=== PATIENT | male | born 1955 | race Caucasian/White ===

== ENCOUNTER 2016-11-15 22:33 | Inpatient (IN) | payer OTHER ==
[~2016-11-15] VITALS: Ht 172.7 cm; Wt 104.9 kg
[2016-11-15] MEDS ORDERED: methylPREDNISolone SOD SUCC PF 125 MG/2 ML VIAL. IV ONE (22:45)
[2016-11-15] MEDS ORDERED: IPRATRPIUM/ALBUTEROL 0.5/2.5MG 3 ML NEBU. NEB ONE ×2 (22:45→23:45)
[2016-11-15 23:48] LABS: BASO % 0 % (0-3); EOS % 0 % (0-3); HEMATOCRIT 46.9 % (39.0-53.0); HEMOGLOBIN 15.7 g/dL (13.0-17.5); LYMPH # 0.4 x10^3/uL (1.0-4.8); LYMPH % 3 % (24-48); MEAN CORPUSCULAR HEMOGLOBIN 29 pg (25-35); MEAN CORPUSCULAR HGB CONC 34 g/dL (31-37); MEAN CORPUSCULAR VOLUME 86 fL (79-100); MONO % 4 % (0-9); NEUT % 93 % (31-73); PLATELET COUNT 119 x10^3/uL (140-400); RED BLOOD COUNT 5.45 x10^6/uL (4.30-5.70); RED CELL DISTRIBUTION WIDTH 12.9 % (11.5-14.5); WHITE BLOOD COUNT 15.7 x10^3/uL (4.0-11.0)
[2016-11-16] VITALS (7 sets, daily range): BP systolic 112–138; BP diastolic 64–82
[2016-11-16 00:04] LABS: CALCIUM 9.2 mg/dL (8.5-10.1); CREATININE 1.1 mg/dL (0.7-1.3); GFR 67.6; POTASSIUM 4.1 mmol/L (3.5-5.1)
--- NOTE | 2016-11-16 00:40 | PHYS DOC ---
Past Medical History Past Medical History: Asthma, COPD Past Surgical History: Other Additional Past Surgical Histo: cabg Alcohol Use: None Drug Use: None Adult General Chief Complaint Chief Complaint: SHORTNESS OF BREATH HPI HPI This is a 61-year-old male who is coming in with difficulty breathing for the last several days and cough. Patient states he has history of COPD and has had open heart surgery in the past. Patient does still smoke a few cigarettes daily. He denies any chest pain with the symptoms. He denies any fever or chills. EMS was notified about the shortness of breath and upon arrival he was satting in the upper 90s on room air in no apparent distress. Several DuoNeb treatments were administered. Upon arrival, the patient still states he feels symptomatically short of breath made worse with exertion. Review of Systems Review of Systems Constitutional: Denies fever or chills [] Eyes: Denies change in visual acuity, redness, or eye pain [] HENT: Denies nasal congestion or sore throat [] Respiratory: Has cough, has shortness of breath [] Cardiovascular: No additional information not addressed in HPI [] GI: Denies abdominal pain, nausea, vomiting, bloody stools or diarrhea [] : Denies dysuria or hematuria [] Musculoskeletal: Denies back pain or joint pain [] Integument: Denies rash or skin lesions [] Neurologic: Denies headache, focal weakness or sensory changes [] Endocrine: Denies polyuria or polydipsia [] Current Medications Current Medications Current Medications Medications (Trade) Dose Ordered Sig/Chris Start Time Stop Time Status Last Admin Dose Admin Acetaminophen (Tylenol) 650 mg PRN Q4HRS PRN 11/16/16 00:45 11/17/16 00:44 UNV Albuterol/ Ipratropium (Duoneb) 3 ml RTQID 11/16/16 08:00 11/17/16 07:59 UNV Methylprednisolone Sodium Succinate (Solu-Medrol 125mg Vial) 125 mg 1X ONCE 11/15/16 22:45 11/15/16 23:13 DC 11/15/16 23:39 125 MG Ondansetron HCl (Zofran) 4 mg PRN Q8HRS PRN 11/16/16 00:45 11/17/16 00:44 UNV Allergies Allergies Allergies Coded Allergies Type Severity Reaction Last Updated Verified doxycycline Allergy Unknown 11/15/16 Yes Physical Exam Physical Exam Constitutional: Well developed, well nourished, no acute distress, non-toxic appearance. [] HENT: Normocephalic, atraumatic, bilateral external ears normal, oropharynx moist, no oral exudates, nose normal. [] Eyes: PERRLA, EOMI, conjunctiva normal, no discharge. [] Neck: Normal range of motion, no tenderness, supple, no stridor. [] Cardiovascular:Heart rate regular rhythm, no murmur [] Lungs & Thorax: Mild wheezing bilaterally with no acute respiratory distress [] Abdomen: Bowel sounds normal, soft, no tenderness, no masses, no pulsatile masses. [] Skin: Warm, dry, no erythema, no rash. [] Back: No tenderness, no CVA tenderness. [] Extremities: No tenderness, no cyanosis, no clubbing, ROM intact, no edema. [] Neurologic: Alert and oriented X 3, normal motor function, normal sensory function, no focal deficits noted. [] Psychologic: Affect normal, judgement normal, mood normal. [] Current Patient Data Vital Signs Vital Signs Date Time Temp Pulse Resp B/P Pulse Ox O2 Delivery O2 Flow Rate FiO2 11/16/16 00:00 114 18 126/70 95 Nasal Cannula 2 11/15/16 22:48 98.4 98.4 Lab Values Laboratory Tests Test 11/15/16 23:35 White Blood Count 15.7x10^3/uL (4.0-11.0) H Red Blood Count 5.45x10^6/uL (4.30-5.70) Hemoglobin 15.7g/dL (13.0-17.5) Hematocrit 46.9% (39.0-53.0) Mean Corpuscular Volume 86fL (79-100) Mean Corpuscular Hemoglobin 29pg (25-35) Mean Corpuscular Hemoglobin Concent 34g/dL (31-37) Red Cell Distribution Width 12.9% (11.5-14.5) Platelet Count 119x10^3/uL (140-400) L Neutrophils (%) (Auto) 93% (31-73) H Lymphocytes (%) (Auto) 3% (24-48) L Monocytes (%) (Auto) 4% (0-9) Eosinophils (%) (Auto) 0% (0-3) Basophils (%) (Auto) 0% (0-3) Neutrophils # (Auto) 14.6x10^3uL (1.8-7.7) H Lymphocytes # (Auto) 0.4x10^3/uL (1.0-4.8) L Monocytes # (Auto) 0.6x10^3/uL (0.0-1.1) Eosinophils # (Auto) 0.0x10^3/uL (0.0-0.7) Basophils # (Auto) 0.0x10^3/uL (0.0-0.2) Platelet Estimate Pending Sodium Level 137mmol/L (136-145) Potassium Level 4.1mmol/L (3.5-5.1) Chloride Level 99mmol/L (98-107) Carbon Dioxide Level 25mmol/L (21-32) Anion Gap 13 (6-14) Blood Urea Nitrogen 16mg/dL (8-26) Creatinine 1.1mg/dL (0.7-1.3) Estimated GFR (Cockcroft-Gault) 67.6 Glucose Level 175mg/dL (70-99) H Calcium Level 9.2mg/dL (8.5-10.1) Troponin I Quantitative < 0.017ng/mL (0.000-0.055) Laboratory Tests 11/15/16 23:35 Laboratory Tests 11/15/16 23:35 EKG EKG EKG as interpreted by me shows a sinus tachycardia with a rate of 109 bpm. There are no acute ST findings. Radiology/Procedures Radiology/Procedures Portable 1 view of the chest as interpreted by wy did not reveal an acute cardiopulmonary process. Course & Med Decision Making Course & Med Decision Making Pertinent Labs and Imaging studies reviewed. (See chart for details) 61-year-old male has had several breathing treatments and a dose of IV site and Medrol. He was ambulated around the department stopped and symptomatically short of breath and so I will be admitting him for COPD exacerbation. His EKG and chest film were unrevealing for any acute abnormalities. His blood work including a set of cardiac enzymes are also negative. I discussed the case with the hospitalist, Dr. Hernandez, who agreed to admit the patient for further evaluation and treatment. Dragon Disclaimer Dragon Disclaimer This electronic medical record was generated, in whole or in part, using a voice recognition dictation system. Departure Departure Impression: Primary Impression: COPD exacerbation Disposition: ADMITTED INPATIENT Admitting Physician: Jennyfer Hernandez Condition: STABLE Referrals: KACIE COLE (PCP) SOFI SOLORZANO DO Nov 16, 2016 00:40
[2016-11-16] MEDS ORDERED: ACETAMINOPHEN 325 MG TABLET. PO PRN (00:45)
[2016-11-16] MEDS ORDERED: ONDANSETRON PF 4 MG/2 ML VIAL. IV PRN (00:45)
--- NOTE | 2016-11-16 00:51 | ACF ---
Admit Criteria Forms Admit Criteria Forms Admit Criteria Forms COPD Clinical Indications for Admission to Inpatient Care (Place 'X' for any and all applicable criteria): Admission is indicated for ANY ONE of the following (1)(2)(3): [X]I. Acute exacerbation by high-risk comorbidity (e.g., pneumonia, dysrhythmia, heart failure, pleural effusion, pneumothorax) or severe underlying COPD (e.g., steroid dependent) [ ]II. Inpatient admission required rather than observation care (see Chronic Obstructive Pulmonary Disease: Observation Care) because of ANY ONE of the following: [ ]a) New or pre-existing signs or symptoms of COPD (eg, dyspnea or Tachypnea at rest or with minimal activity) that persist despite outpatient and observation care treatment [ ]b) New-onset hypoxemia (room air SaO2 less than 90%, PO2 less than 60 mm Hg (8.0 kPa)) that persists despite outpatient and observation care treatment [ ]c) Worsening of pre-existing hypoxemia (eg, new or increased requirement for supplemental oxygen to maintain oxygenation at baseline level) that persists despite outpatient and observation care treatment, with oxygen treatment needs performable only in acute inpatient setting [ ]d) Hypercarbia (PCO2 greater than 40 mm Hg (5.3 kPa))-induced respiratory acidosis (pH less than 7.35) that persists despite outpatient and observation care treatment [ ]e) Supplemental oxygen or respiratory treatments for over 24 hours that are performable only in acute inpatient setting [ ]f) Chest tube placement with active evacuation (e.g., suction, drainage) (5) [ ]g) Other condition, treatment or monitoring requiring inpatient admission [ ]III. Planned invasive surgical or diagnostic procedures requiring acute- care hospitalization [ ]IV. Acute respiratory failure (e.g., uncompensated hypercarbia, severe hypoxemia) [ ]V. Severe comorbid condition (e.g., severe steroid myopathy, acute vertebral fracture) that has acutely worsened pulmonary function [ ]. Confusion state, lethargy, obtundation, stupor or coma Extended stay beyond goal length of stay may be needed for (31)(32): [ ]a ) Respiratory Failure. [ ]b) Severe or persisting hypoxemia or hypercarbia [ ]c) Severe or persistent dyspnea [ ]d) Comorbidities (e.g. chronic heart failure, atrial fibrillation with rapid response, pneumonia) [ ]e) Malnutrition The original [employer] content created by [facility] has been revised. The portions of the content which have been revised are identified through the use of italic text or in bold, and [facility] has neither reviewed nor approved the modified material. All other unmodified content is copyright [facility]. Please see references footnoted in the original [facility] edition 2016 RAJI VARELA Nov 16, 2016 00:50
[2016-11-16 02:23] LABS: OBC FLU VALID
[2016-11-16] MEDS ORDERED: INFLUENZA VAX SCREEN BY RX. MC ONE (02:30)
[2016-11-16] MEDS ORDERED: PNEUMOCOCCAL VAX SCREEN BY RX. MC ONE (02:30)
[2016-11-16 04:26] LABS: PLT ESTIMATE DECREASED (ADEQUATE)
--- NOTE | 2016-11-16 07:43 | RAD ---
Exam: AP portable chest. History: Shortness of breath. Comparison: None. Findings: The heart and mediastinal structures are within normal limits for size. Lungs are without infiltrate. No pneumothorax or pleural effusion is appreciated. Median sternotomy wires are seen. Impression: 1. No acute cardiopulmonary process.
[2016-11-16] MEDS ORDERED: IPRATRPIUM/ALBUTEROL 0.5/2.5MG 3 ML NEBU. NEB SCH (08:00)
[2016-11-16] MEDS ORDERED: NICOTINE 7MG PATCH. TD PRN (08:45)
[2016-11-16] MEDS ORDERED: GUAIFENESIN DM 200MG/20MG 10 ML SYRUP. PO PRN (08:45)
[2016-11-16] MEDS ORDERED: NICOTINE POLACRILEX 2MG GUM PACKAGE of 12. BC PRN (08:45)
--- NOTE | 2016-11-16 08:45 | PDOC1 ---
History and Physical Date of Admission Date of Admission DATE: 11/16/16 TIME: 08:42 Identification/Chief Complaint Chief Complaint short of breath and cough Source Source: Chart review, Patient History of Present Illness History of Present Illness Mr. Silva is a 61-year-old male who is coming in with difficulty breathing for the last several days and cough. Patient states he has history of COPD and has had open heart surgery in the past. Patient does still smoke a few cigarettes daily. he cannot breathe deeply without coughing uncontrollably. he feels a little better after breathing tx. He has almost quit smoking, Gets most care at the [facility], he is not working, feels disabled, Past Medical History Cardiovascular: CAD, HTN Pulmonary: COPD CENTRAL NERVOUS SYSTEM: Other GI: No pertinent hx Heme/Onc: No pertinent hx Hepatobiliary: No pertinent hx Psych: No pertinent hx Musculoskeletal: low back pain Infectious disease: No pertinent hx ENT: No pertinent hx Renal/: No pertinent hx Dermatology: No pertinent hx Past Surgical History Past Surgical History: Other Family History Family History: No Significant Social History Smoke: <1 pack per day ALCOHOL: rare Current Problem List Problem List Problems Medical Problems: (1) COPD exacerbation Status: Acute Problems: Current Medications Current Medications Current Medications Albuterol/ Ipratropium (Duoneb) 3 ml 1X ONCE NEB Last administered on 23:06; Start 11/15/16 at 22:45; Stop 11/15/16 at 23:13; Status DC Methylprednisolone Sodium Succinate (Solu-Medrol 125mg Vial) 125 mg 1X ONCE IV Last administered on 11/15/16 23:39; Start 11/15/16 at 22:45; Stop 11/15/16 at 23:13; Status DC Albuterol/ Ipratropium (Duoneb) 3 ml 1X ONCE NEB Last administered on 23:46; Start 11/15/16 at 23:45; Stop 11/15/16 at 23:56; Status DC Ondansetron HCl (Zofran) 4 mg PRN Q8HRS PRN IV NAUSEA/VOMITING; Start 11/16/16 at 00:45; Stop 11/17/16 at 00:44 Acetaminophen (Tylenol) 650 mg PRN Q4HRS PRN PO FEVER; Start 11/16/16 at 00:45 ; Stop 11/17/16 at 00:44 Albuterol/ Ipratropium (Duoneb) 3 ml RTQID NEB Last administered on 11/16/16t 07:27; Start 11/16/16 at 08:00; Stop 11/17/16 at 07:59 Info (Do NOT chart on this placeholder) 1 each 1X ONCE MC ; Start 11/16/16 at 02:30; Stop 11/16/16 at 02:31; Status UNV Pneumococcal Polyvalent Vaccine (Do NOT chart on this placeholder) 1 each 1X ONCE MC ; Start 11/16/16 at 02:30; Stop 11/16/16 at 02:31; Status UNV Influenza Virus Vaccine Quadrival (Fluarix Quad [id number] Syringe) 0.5 ml ONCE ONCE VAX IM ; Start 11/16/16 at 09:00; Stop 11/16/16 at 09:01 Pneumococcal Polyvalent Vaccine (Pneumovax 23) 0.5 ml ONCE ONCE VAX IM ; Start 11/16/16 at 09:00; Stop 11/16/16 at 09:01 Allergies Allergies: Coded Allergies: doxycycline (Verified Allergy, Intermediate, 11/16/16) ROS General: YES: Fatigue, No: Appetite, Chills, Malaise, Night Sweats, Other PSYCHOLOGICAL ROS: No: Anxiety, Behavioral Disorder, Concentration difficultie , Decreased libido, Depression, Disorientation, Hallucinations, Hostility, Irritablity, Memory difficulties, Mood Swings, Obsessive thoughts, Other, Physical abuse, Sexual abuse, Sleep disturbances, Suicidal ideation Eyes: No Blurry vision, No Decreased vision, No Double vision, No Dry eyes, No Excessive tearing, No Eye Pain, No Itchy Eyes, No Loss of vision, No Other, No Photophobia, No Scotomata, No Uses contacts, No Uses glasses HEENT: YES: Heacaches, Nasal congestion, No: Epistaxis, Hearing change, Nasal discharge, Oral lesions, Other, Sinus pain, Sneezing, Snoring, Sore Throat, Tinnitus, Vertigo, Visual Changes, Vocal changes Respiratory: YES: Cough, Pleuritic Pain, SOB with excertion, Sputum Changes, Tachypnea, Wheezing, No: Hemoptysis, Orthopnea, Other, Shortness of breath, Stridor Cardiovascular: No Chest Pain, No Edema, No Lt Headedness, No Orthopnea, No Other, No Palpitations, No Paroxysmal Noc. Dyspnea Gastrointestinal: No Abdominal Pain, No Constipation, No Diarrhea, No Hematochezia, No Melena, No Nausea, No Other, No Vomiting Genitourinary: No , No , No , No , No , No , No , No Discharge, No Dysuria, No Flank Pain, No Frequency, No Hematuria, No Incontinence, No Other, No Pain, No Retention, No Urgency Musculoskeletal: No Gait Disturbance, No Joint Pain, No Joint Stiffness, No Joint Swelling, No Muscle Pain, No Muscular Weakness, No Other, No Pain In:, No Swelling In: Neurological: No Behavorial Changes, No Bowel/Bladder ControlChng, No Confusion , No Dizziness, No Gait Disturbance, No Headaches, No Impaired Coord/balance, No Memory Loss, No Numbness/Tingling, No Other, No Seizures, No Speech Problems , No Tremors, No Visual Changes, No Weakness Skin: Yes Dry Skin, No Acne, No Eczema, No Hair Changes, No Lumps, No Mole Changes, No Mottling, No Nail Changes, No Other, No Pruritus, No Rash, No Skin Lesion Changes Physical Exam General: Alert, Oriented X3, Cooperative, mild distress HEENT: Atraumatic, PERRLA Lungs: Other (low volume, rales, unable to breathe deeply, ) Heart: no murmurs Abdomen: Normal bowel sounds, Soft Extremities: No clubbing, No edema, Normal pulses Skin: No rashes Neuro: Normal speech, Normal tone, Cranial nerves 3-12 NL Psych/Mental Status: Mood NL Vitals Vitals Vital Signs Date Time Temp Pulse Resp B/P Pulse Ox O2 Delivery O2 Flow Rate FiO2 11/16/16 07:31 94 Room Air 11/16/16 02:16 97.5 106 20 128/82 97.5 11/16/16 00:00 2 Labs Labs Laboratory Tests Test 11/15/16 23:27 11/15/16 23:35 Influenza Type A Antigen Negative (NEGATIVE) Influenza Type B Antigen Negative (NEGATIVE) White Blood Count 15.7x10^3/uL (4.0-11.0) Red Blood Count 5.45x10^6/uL (4.30-5.70) Hemoglobin 15.7g/dL (13.0-17.5) Hematocrit 46.9% (39.0-53.0) Mean Corpuscular Volume 86fL (79-100) Mean Corpuscular Hemoglobin 29pg (25-35) Mean Corpuscular Hemoglobin Concent 34g/dL (31-37) Red Cell Distribution Width 12.9% (11.5-14.5) Platelet Count 119x10^3/uL (140-400) Neutrophils (%) (Auto) 93% (31-73) Lymphocytes (%) (Auto) 3% (24-48) Monocytes (%) (Auto) 4% (0-9) Eosinophils (%) (Auto) 0% (0-3) Basophils (%) (Auto) 0% (0-3) Neutrophils # (Auto) 14.6x10^3uL (1.8-7.7) Lymphocytes # (Auto) 0.4x10^3/uL (1.0-4.8) Monocytes # (Auto) 0.6x10^3/uL (0.0-1.1) Eosinophils # (Auto) 0.0x10^3/uL (0.0-0.7) Basophils # (Auto) 0.0x10^3/uL (0.0-0.2) Segmented Neutrophils % 86% (35-66) Band Neutrophils % 8% (0-9) Lymphocytes % 1% (24-48) Monocytes % 5% (0-10) Platelet Estimate Decreased (ADEQUATE) Large Platelets Occ Sodium Level 137mmol/L (136-145) Potassium Level 4.1mmol/L (3.5-5.1) Chloride Level 99mmol/L (98-107) Carbon Dioxide Level 25mmol/L (21-32) Anion Gap 13 (6-14) Blood Urea Nitrogen 16mg/dL (8-26) Creatinine 1.1mg/dL (0.7-1.3) Estimated GFR (Cockcroft-Gault) 67.6 Glucose Level 175mg/dL (70-99) Calcium Level 9.2mg/dL (8.5-10.1) Troponin I Quantitative < 0.017ng/mL (0.000-0.055) Laboratory Tests Test 11/15/16 23:27 11/15/16 23:35 Influenza Type A Antigen Negative (NEGATIVE) Influenza Type B Antigen Negative (NEGATIVE) White Blood Count 15.7x10^3/uL (4.0-11.0) Red Blood Count 5.45x10^6/uL (4.30-5.70) Hemoglobin 15.7g/dL (13.0-17.5) Hematocrit 46.9% (39.0-53.0) Mean Corpuscular Volume 86fL (79-100) Mean Corpuscular Hemoglobin 29pg (25-35) Mean Corpuscular Hemoglobin Concent 34g/dL (31-37) Red Cell Distribution Width 12.9% (11.5-14.5) Platelet Count 119x10^3/uL (140-400) Neutrophils (%) (Auto) 93% (31-73) Lymphocytes (%) (Auto) 3% (24-48) Monocytes (%) (Auto) 4% (0-9) Eosinophils (%) (Auto) 0% (0-3) Basophils (%) (Auto) 0% (0-3) Neutrophils # (Auto) 14.6x10^3uL (1.8-7.7) Lymphocytes # (Auto) 0.4x10^3/uL (1.0-4.8) Monocytes # (Auto) 0.6x10^3/uL (0.0-1.1) Eosinophils # (Auto) 0.0x10^3/uL (0.0-0.7) Basophils # (Auto) 0.0x10^3/uL (0.0-0.2) Segmented Neutrophils % 86% (35-66) Band Neutrophils % 8% (0-9) Lymphocytes % 1% (24-48) Monocytes % 5% (0-10) Platelet Estimate Decreased (ADEQUATE) Large Platelets Occ Sodium Level 137mmol/L (136-145) Potassium Level 4.1mmol/L (3.5-5.1) Chloride Level 99mmol/L (98-107) Carbon Dioxide Level 25mmol/L (21-32) Anion Gap 13 (6-14) Blood Urea Nitrogen 16mg/dL (8-26) Creatinine 1.1mg/dL (0.7-1.3) Estimated GFR (Cockcroft-Gault) 67.6 Glucose Level 175mg/dL (70-99) Calcium Level 9.2mg/dL (8.5-10.1) Troponin I Quantitative < 0.017ng/mL (0.000-0.055) VTE Prophylaxis Ordered VTE Prophylaxis Devices: Yes VTE Pharmacological Prophylaxi: No Assessment/Plan Assessment/Plan COPD w. acute bronchitis, SIRS, respiratory distress without hypoxia + SIRS, not sepsis, no organ dysfunction other than PULM, will consult Hx CAD, s/p CABG and stent, cont plavix and statin GERD, PPI admit SHAYNE TOVAR MD Nov 16, 2016 08:45
[2016-11-16] MEDS ORDERED: DOXYCYCLINE HYCLATE 100 MG TABLET PO SCH (09:00)
[2016-11-16] MEDS ORDERED: LEVOFLOXACIN 750 MG TABLET. PO ONE (09:00)
[2016-11-16] MEDS ORDERED: PNEUMOC CONJ VACC 23-VALENT 0.5 ML VIAL. VAX IM ONE (09:00)
[2016-11-16] MEDS ORDERED: CLOPIDOGREL BISULFATE 75 MG TABLET PO ONE (09:00)
[2016-11-16] MEDS ORDERED: FLU VACC QUAD 2016-17 (36MOS+)/PF 0.5 ML SYRINGE. VAX IM ONE (09:00)
[2016-11-16] MEDS ORDERED: CODE1CAP24 PO (09:58)
[2016-11-16] MEDS ORDERED: NAPR500T8 PO (09:58)
[2016-11-16] MEDS ORDERED: CLOP75TA PO (09:58)
[2016-11-16] MEDS ORDERED: PANT40TA5 PO (09:58)
[2016-11-16] MEDS ORDERED: SIMV80TA3 PO (09:58)
[2016-11-16] MEDS ORDERED: METO100T11 PO (09:58)
[2016-11-16] MEDS ORDERED: PANTOPRAZOLE 40 MG TABLET. PO ONE (10:00)
[2016-11-16] MEDS ORDERED: ASPI-482 PO (10:02)
[2016-11-16] MEDS ORDERED: METO50TA2 PO (10:02)
[2016-11-16] MEDS ORDERED: METH500T7 PO (10:02)
--- NOTE | 2016-11-16 10:42 | PDOC ---
Provider Note Provider Note [id number] dyspnea ae of copd acute bronchitis abx, steroid, neb MADONNA ATKINSON MD Nov 16, 2016 10:42
[2016-11-16] MEDS: CARVEDILOL 3.125 MG TABLET PO SCH ×2 (11:00→16:12)
[2016-11-16] MEDS: PREDNISONE 20 MG TABLET PO SCH (11:00)
[2016-11-16] MEDS: LIDOCAINE (700MG/PATCH) PATCH. TD SCH (11:02)
--- NOTE | 2016-11-16 11:35 | EKG ---
[facility] [address] [place] [address] Test Date: 2016-11-15 Test Time: 22:46:59 Pat Name: CARIE STERLING Department: Room: [facility] Gender: M College Administrator: : [id number] Requested By: SOFI SOLORZANO Order Number: [id number] Reading MD: Jeet Flaherty Measurements Intervals [place] Rate: 109 P: 60 KS: 142 QRS: 43 QRSD: 80 T: 93 QT: 328 QTc: 443 Interpretive Statements SINUS TACHYCARDIA Electronically Signed On 11-18-2016 9:44:07 EYELET ROW MARKER by Jeet Flaherty
[2016-11-16] MEDS: IPRATRPIUM/ALBUTEROL 0.5/2.5MG 3 ML NEBU. NEB SCH ×3 (11:46→20:12)
[2016-11-16] MEDS: BUDESONIDE 0.5 MG/2 ML NEBU NEB SCH ×2 (11:47→20:12)
--- NOTE | 2016-11-16 14:46 | CONS ---
DATE OF CONSULTATION: 11/16/2016 PULMONARY CONSULTATION I was asked to see this 61-year-old gentleman for shortness of breath, cough, wheezing, acute exacerbation of COPD. HISTORY OF PRESENT ILLNESS: He does have history of [id number] smoking, continues to smoke a few cigarettes here and there. He started to have increased cough, shortness of breath, wheezing, sputum production, and nasal congestion, a few days ago. He has chest wall pain secondary to coughing. He denies gastroesophageal reflux symptoms. He has excessive daytime sleepiness and tiredness, does not know if he snores. He has multiple awakening at night. PAST MEDICAL HISTORY: COPD, asthma, coronary artery disease status post CABG. ALLERGIES: DOXYCYCLINE. MEDICATIONS: Currently, he is on albuterol, Atrovent nebulizer, Plavix, aspirin, Protonix, Levaquin, Lipitor, Coreg, Pulmicort, prednisone 40 mg daily, and nicotine patch. SOCIAL HISTORY: History of [id number] smoking. Continues to smoke few cigarettes. FAMILY HISTORY: Positive for COPD. REVIEW OF SYSTEMS: As mentioned as above. He has gained weight. Other systems are otherwise negative. PHYSICAL EXAMINATION: GENERAL: This is an overweight gentleman. VITAL SIGNS: His O2 saturation is 94%, respiratory rate 20, heart rate 105, blood pressure 135/79, and temperature 97.7. HEENT: Normocephalic, atraumatic. Pupils equal, round, reactive to light. Throat is clear. There is shallow oropharynx dependent palate. Nose: There is inflamed mucosa. NECK: There is no JVD, lymphadenopathy or thyromegaly. CARDIOVASCULAR: Regular rate and rhythm. PMI is nondisplaced. CHEST: Inspection is normal. LUNGS: Bilateral end expiratory wheezing, bibasilar crackles, dullness at the bases. ABDOMEN: Soft and obese. Bowel sounds are good. There is no mass. EXTREMITIES: There is no clubbing or cyanosis. LYMPHATICS: There is no lymphadenopathy. SKIN: Chronic changes. NEUROLOGIC: Alert and oriented x 3. LABORATORY DATA: I reviewed the following lab data Influenza A and B negative. Sodium 137, potassium 4.1, chloride 99, CO2 of 25, glucose 175. BUN 16, creatinine 1.1. Troponin less than 0.01. WBC 15.7, hemoglobin 15.7, platelets 119. IMPRESSION: 1. Dyspnea, multifactorial in etiology. 2. Acute exacerbation of chronic obstructive pulmonary disease. 3. Acute bronchitis. 4. Coronary artery disease, status post coronary artery bypass graft. 5. Tobacco habituation. 6. Obesity and excessive daytime sleepiness, probable obstructive sleep apnea-hypopnea syndrome. PLAN AND RECOMMENDATIONS: 1. Titrate FiO2 to keep O2 saturation 92%. 2. Bronchodilator. 3. Inhaled corticosteroid. 4. Prednisone 40 mg daily. If he does not improve, we may have to change prednisone to Solu-Medrol 40 mg IV every 8. 5. Sputum culture. 6. Lovenox for DVT prophylaxis. 7. Lose weight and exercise. 8. I had a long discussion with him regarding smoking cessation. I have advised him to stop smoking forever. 9. I agree with nicotine patch. 10. I have discussed obstructive sleep apnea-hypopnea syndrome, the importance of diagnosis and treatment if untreated increased cardiovascular and [employer] morbidity or mortality. I do recommend a split night sleep study as an outpatient. 11. The findings and recommendations were discussed with the patient. He understood and agreed to proceed with the plan. I have answered all of his questions. Thank you very much for allowing me to participate in care of this very nice gentleman. MADONNA ATKINSON M.D. : NOLVIA/jonatan JOB#: [id number] / [id number]
[2016-11-16] MEDS: GUAIFENESIN DM 200MG/20MG 10 ML SYRUP. PO PRN (17:14)
[2016-11-16] MEDS: OXYCODONE IR 5 MG TABLET. PO PRN ×2 (17:15→20:46)
[2016-11-16] MEDS: ATORVASTATIN CALCIUM 20 MG TABLET PO SCH (20:42)
[2016-11-16] MEDS: MONTELUKAST SODIUM 10 MG TABLET. PO SCH (20:42)
[2016-11-17 03:14] VITALS: BP 124/67
[2016-11-17] MEDS: GUAIFENESIN DM 200MG/20MG 10 ML SYRUP. PO PRN ×2 (03:27→14:33)
[2016-11-17] MEDS: OXYCODONE IR 5 MG TABLET. PO PRN ×2 (03:28→18:54)
[2016-11-17] MEDS: PANTOPRAZOLE 40 MG TABLET. PO SCH (05:55)
[2016-11-17] MEDS: LEVOFLOXACIN 750 MG TABLET. PO SCH (05:55)
[2016-11-17 07:00] VITALS: BP 129/76
[2016-11-17 07:04] LABS: BASO % 0 % (0-3); EOS % 0 % (0-3); HEMATOCRIT 42.6 % (39.0-53.0); LYMPH # 1.1 x10^3/uL (1.0-4.8); LYMPH % 8 % (24-48); MEAN CORPUSCULAR HEMOGLOBIN 29 pg (25-35); MEAN CORPUSCULAR HGB CONC 33 g/dL (31-37); MEAN CORPUSCULAR VOLUME 87 fL (79-100); MONO % 8 % (0-9); NEUT % 85 % (31-73); PLATELET COUNT 125 x10^3/uL (140-400); RED BLOOD COUNT 4.91 x10^6/uL (4.30-5.70); RED CELL DISTRIBUTION WIDTH 13.3 % (11.5-14.5)
[2016-11-17 07:20] LABS: CALCIUM 9.1 mg/dL (8.5-10.1); CREATININE 1.2 mg/dL (0.7-1.3); GFR 61.1; POTASSIUM 4.3 mmol/L (3.5-5.1)
[2016-11-17] MEDS: IPRATRPIUM/ALBUTEROL 0.5/2.5MG 3 ML NEBU. NEB SCH ×4 (08:15→19:36)
[2016-11-17] MEDS: BUDESONIDE 0.5 MG/2 ML NEBU NEB SCH ×2 (08:16→19:36)
[2016-11-17] MEDS: ASPIRIN 81 MG TAB.CHEW PO SCH (08:44)
[2016-11-17] MEDS: CLOPIDOGREL BISULFATE 75 MG TABLET PO SCH (08:44)
[2016-11-17] MEDS: PREDNISONE 20 MG TABLET PO SCH (08:44)
[2016-11-17] MEDS: CARVEDILOL 3.125 MG TABLET PO SCH ×2 (08:45→17:24)
[2016-11-17] MEDS: LIDOCAINE (700MG/PATCH) PATCH. TD SCH (08:48)
[2016-11-17 11:00] VITALS: BP 126/77
--- NOTE | 2016-11-17 12:06 | PDOC ---
PULMONARY PROGRESS NOTES Subjective Had some soa last night feels better today Vitals Vital Signs Date Time Temp Pulse Resp B/P Pulse Ox O2 Delivery O2 Flow Rate FiO2 11/17/16 11:00 97.7 101 20 126/77 94 Room Air 97.7 11/16/16 18:15 2.0 General: Alert Lungs: Clear Cardiovascular: S1 Abdomen: Soft Neuro Exam: Alert Extremities: No Edema Skin: Warm Labs Laboratory Tests Test 11/15/16 23:27 11/15/16 23:35 11/17/16 06:40 Influenza Type A Antigen Negative (NEGATIVE) Influenza Type B Antigen Negative (NEGATIVE) White Blood Count 15.7x10^3/uL (4.0-11.0) 15.0x10^3/uL (4.0-11.0) Red Blood Count 5.45x10^6/uL (4.30-5.70) 4.91x10^6/uL (4.30-5.70) Hemoglobin 15.7g/dL (13.0-17.5) 14.0g/dL (13.0-17.5) Hematocrit 46.9% (39.0-53.0) 42.6% (39.0-53.0) Mean Corpuscular Volume 86fL (79-100) 87fL (79-100) Mean Corpuscular Hemoglobin 29pg (25-35) 29pg (25-35) Mean Corpuscular Hemoglobin Concent 34g/dL (31-37) 33g/dL (31-37) Red Cell Distribution Width 12.9% (11.5-14.5) 13.3% (11.5-14.5) Platelet Count 119x10^3/uL (140-400) 125x10^3/uL (140-400) Neutrophils (%) (Auto) 93% (31-73) 85% (31-73) Lymphocytes (%) (Auto) 3% (24-48) 8% (24-48) Monocytes (%) (Auto) 4% (0-9) 8% (0-9) Eosinophils (%) (Auto) 0% (0-3) 0% (0-3) Basophils (%) (Auto) 0% (0-3) 0% (0-3) Neutrophils # (Auto) 14.6x10^3uL (1.8-7.7) 12.7x10^3uL (1.8-7.7) Lymphocytes # (Auto) 0.4x10^3/uL (1.0-4.8) 1.1x10^3/uL (1.0-4.8) Monocytes # (Auto) 0.6x10^3/uL (0.0-1.1) 1.1x10^3/uL (0.0-1.1) Eosinophils # (Auto) 0.0x10^3/uL (0.0-0.7) 0.0x10^3/uL (0.0-0.7) Basophils # (Auto) 0.0x10^3/uL (0.0-0.2) 0.0x10^3/uL (0.0-0.2) Segmented Neutrophils % 86% (35-66) Band Neutrophils % 8% (0-9) Lymphocytes % 1% (24-48) Monocytes % 5% (0-10) Platelet Estimate Decreased (ADEQUATE) Large Platelets Occ Sodium Level 137mmol/L (136-145) 136mmol/L (136-145) Potassium Level 4.1mmol/L (3.5-5.1) 4.3mmol/L (3.5-5.1) Chloride Level 99mmol/L (98-107) 101mmol/L (98-107) Carbon Dioxide Level 25mmol/L (21-32) 26mmol/L (21-32) Anion Gap 13 (6-14) 9 (6-14) Blood Urea Nitrogen 16mg/dL (8-26) 25mg/dL (8-26) Creatinine 1.1mg/dL (0.7-1.3) 1.2mg/dL (0.7-1.3) Estimated GFR (Cockcroft-Gault) 67.6 61.1 Glucose Level 175mg/dL (70-99) 254mg/dL (70-99) Calcium Level 9.2mg/dL (8.5-10.1) 9.1mg/dL (8.5-10.1) Troponin I Quantitative < 0.017ng/mL (0.000-0.055) Laboratory Tests Test 11/17/16 06:40 White Blood Count 15.0x10^3/uL (4.0-11.0) Red Blood Count 4.91x10^6/uL (4.30-5.70) Hemoglobin 14.0g/dL (13.0-17.5) Hematocrit 42.6% (39.0-53.0) Mean Corpuscular Volume 87fL (79-100) Mean Corpuscular Hemoglobin 29pg (25-35) Mean Corpuscular Hemoglobin Concent 33g/dL (31-37) Red Cell Distribution Width 13.3% (11.5-14.5) Platelet Count 125x10^3/uL (140-400) Neutrophils (%) (Auto) 85% (31-73) Lymphocytes (%) (Auto) 8% (24-48) Monocytes (%) (Auto) 8% (0-9) Eosinophils (%) (Auto) 0% (0-3) Basophils (%) (Auto) 0% (0-3) Neutrophils # (Auto) 12.7x10^3uL (1.8-7.7) Lymphocytes # (Auto) 1.1x10^3/uL (1.0-4.8) Monocytes # (Auto) 1.1x10^3/uL (0.0-1.1) Eosinophils # (Auto) 0.0x10^3/uL (0.0-0.7) Basophils # (Auto) 0.0x10^3/uL (0.0-0.2) Sodium Level 136mmol/L (136-145) Potassium Level 4.3mmol/L (3.5-5.1) Chloride Level 101mmol/L (98-107) Carbon Dioxide Level 26mmol/L (21-32) Anion Gap 9 (6-14) Blood Urea Nitrogen 25mg/dL (8-26) Creatinine 1.2mg/dL (0.7-1.3) Estimated GFR (Cockcroft-Gault) 61.1 Glucose Level 254mg/dL (70-99) Calcium Level 9.1mg/dL (8.5-10.1) Medications Active Scripts Medications Dose Route/Sig Days Date Category Methocarbamol 500 Mg Tablet 500 Mg PO QID 11/16/16 Reported Metoprolol Tartrate 50 Mg Tablet 1 Tab PO BID 11/16/16 Reported Aspir 81 (Aspirin) 81 Mg Tablet.dr 1 Tab PO DAILY 11/16/16 Reported Naproxen 500 Mg Tablet.dr 500 Mg PO PRN 11/16/16 Reported Pantoprazole Sodium 40 Mg Tablet.dr 1 Tab PO DAILY 11/16/16 Reported Clopidogrel (Clopidogrel Bisulfate) 75 Mg Tablet 1 Tab PO DAILY 11/16/16 Reported Simvastatin 80 Mg Tablet 1 Tab PO DAILY 11/16/16 Reported Impression . 1. Dyspnea, multifactorial in etiology. 2. Acute exacerbation of chronic obstructive pulmonary disease. 3. Acute bronchitis. 4. Coronary artery disease, status post coronary artery bypass graft. 5. Tobacco habituation. 6. Obesity and excessive daytime sleepiness, probable obstructive sleep apnea-hypopnea syndrome. Pt says previous SS ruled out L[facility]ESH at [facility] Plan . 1. Titrate FiO2 to keep O2 saturation 92%. 2. Bronchodilator. 3. Inhaled corticosteroid. 4. steroid taper 5. Sputum culture. 6. Lovenox for DVT prophylaxis. 7. Lose weight and exercise. 8. I had a long discussion with him regarding smoking cessation. I have advised him to stop smoking forever. 9. I agree with nicotine patch. ANTONIO LONG MD Nov 17, 2016 12:06
[2016-11-17 15:00] VITALS: BP 128/83
[2016-11-17] MEDS: ACETAMINOPHEN/CODEINE 300/30MG TABLET PO PRN (15:04)
--- NOTE | 2016-11-17 15:43 | PDOC ---
PROGRESS NOTES Chief Complaint Chief Complaint ASSESSMENT AND PLAN: 1. COPD exacerbation w/ acute bronchitis: cont nebs, suppl O2, prednisone, cough meds 2. SIRS w/ respir dysfxn 3. CAD: hx CABG and stent. no acute issues. cont BB, ASA, plavix and statin 4. GERD: PPI 5. Dispo: home in AM if clinically stable. Vitals Vitals Vital Signs Date Time Temp Pulse Resp B/P Pulse Ox O2 Delivery O2 Flow Rate FiO2 11/17/16 15:04 Room Air 11/17/16 15:00 98.7 94 20 128/83 96 98.7 11/16/16 18:15 2.0 Physical Exam General: Alert, Oriented X3, Cooperative Heart: Regular rate Lungs: Clear, Other (decreased BS bilat) Abdomen: Normal bowel sounds, Soft Extremities: No clubbing, No edema, Normal pulses Skin: No rashes Labs LABS Laboratory Tests Test 11/17/16 06:40 White Blood Count 15.0x10^3/uL (4.0-11.0) Red Blood Count 4.91x10^6/uL (4.30-5.70) Hemoglobin 14.0g/dL (13.0-17.5) Hematocrit 42.6% (39.0-53.0) Mean Corpuscular Volume 87fL (79-100) Mean Corpuscular Hemoglobin 29pg (25-35) Mean Corpuscular Hemoglobin Concent 33g/dL (31-37) Red Cell Distribution Width 13.3% (11.5-14.5) Platelet Count 125x10^3/uL (140-400) Neutrophils (%) (Auto) 85% (31-73) Lymphocytes (%) (Auto) 8% (24-48) Monocytes (%) (Auto) 8% (0-9) Eosinophils (%) (Auto) 0% (0-3) Basophils (%) (Auto) 0% (0-3) Neutrophils # (Auto) 12.7x10^3uL (1.8-7.7) Lymphocytes # (Auto) 1.1x10^3/uL (1.0-4.8) Monocytes # (Auto) 1.1x10^3/uL (0.0-1.1) Eosinophils # (Auto) 0.0x10^3/uL (0.0-0.7) Basophils # (Auto) 0.0x10^3/uL (0.0-0.2) Sodium Level 136mmol/L (136-145) Potassium Level 4.3mmol/L (3.5-5.1) Chloride Level 101mmol/L (98-107) Carbon Dioxide Level 26mmol/L (21-32) Anion Gap 9 (6-14) Blood Urea Nitrogen 25mg/dL (8-26) Creatinine 1.2mg/dL (0.7-1.3) Estimated GFR (Cockcroft-Gault) 61.1 Glucose Level 254mg/dL (70-99) Calcium Level 9.1mg/dL (8.5-10.1) Review of Systems Review of Systems coughing fits with deep breathing. no SOB off O2, but PIERRE Comment Review of Relevant I have reviewed the following items ana (where applicable) has been applied. Labs Laboratory Tests Test 11/15/16 23:27 11/15/16 23:35 11/17/16 06:40 Influenza Type A Antigen Negative (NEGATIVE) Influenza Type B Antigen Negative (NEGATIVE) White Blood Count 15.7x10^3/uL (4.0-11.0) 15.0x10^3/uL (4.0-11.0) Red Blood Count 5.45x10^6/uL (4.30-5.70) 4.91x10^6/uL (4.30-5.70) Hemoglobin 15.7g/dL (13.0-17.5) 14.0g/dL (13.0-17.5) Hematocrit 46.9% (39.0-53.0) 42.6% (39.0-53.0) Mean Corpuscular Volume 86fL (79-100) 87fL (79-100) Mean Corpuscular Hemoglobin 29pg (25-35) 29pg (25-35) Mean Corpuscular Hemoglobin Concent 34g/dL (31-37) 33g/dL (31-37) Red Cell Distribution Width 12.9% (11.5-14.5) 13.3% (11.5-14.5) Platelet Count 119x10^3/uL (140-400) 125x10^3/uL (140-400) Neutrophils (%) (Auto) 93% (31-73) 85% (31-73) Lymphocytes (%) (Auto) 3% (24-48) 8% (24-48) Monocytes (%) (Auto) 4% (0-9) 8% (0-9) Eosinophils (%) (Auto) 0% (0-3) 0% (0-3) Basophils (%) (Auto) 0% (0-3) 0% (0-3) Neutrophils # (Auto) 14.6x10^3uL (1.8-7.7) 12.7x10^3uL (1.8-7.7) Lymphocytes # (Auto) 0.4x10^3/uL (1.0-4.8) 1.1x10^3/uL (1.0-4.8) Monocytes # (Auto) 0.6x10^3/uL (0.0-1.1) 1.1x10^3/uL (0.0-1.1) Eosinophils # (Auto) 0.0x10^3/uL (0.0-0.7) 0.0x10^3/uL (0.0-0.7) Basophils # (Auto) 0.0x10^3/uL (0.0-0.2) 0.0x10^3/uL (0.0-0.2) Segmented Neutrophils % 86% (35-66) Band Neutrophils % 8% (0-9) Lymphocytes % 1% (24-48) Monocytes % 5% (0-10) Platelet Estimate Decreased (ADEQUATE) Large Platelets Occ Sodium Level 137mmol/L (136-145) 136mmol/L (136-145) Potassium Level 4.1mmol/L (3.5-5.1) 4.3mmol/L (3.5-5.1) Chloride Level 99mmol/L (98-107) 101mmol/L (98-107) Carbon Dioxide Level 25mmol/L (21-32) 26mmol/L (21-32) Anion Gap 13 (6-14) 9 (6-14) Blood Urea Nitrogen 16mg/dL (8-26) 25mg/dL (8-26) Creatinine 1.1mg/dL (0.7-1.3) 1.2mg/dL (0.7-1.3) Estimated GFR (Cockcroft-Gault) 67.6 61.1 Glucose Level 175mg/dL (70-99) 254mg/dL (70-99) Calcium Level 9.2mg/dL (8.5-10.1) 9.1mg/dL (8.5-10.1) Troponin I Quantitative < 0.017ng/mL (0.000-0.055) Laboratory Tests Test 11/17/16 06:40 White Blood Count 15.0x10^3/uL (4.0-11.0) Red Blood Count 4.91x10^6/uL (4.30-5.70) Hemoglobin 14.0g/dL (13.0-17.5) Hematocrit 42.6% (39.0-53.0) Mean Corpuscular Volume 87fL (79-100) Mean Corpuscular Hemoglobin 29pg (25-35) Mean Corpuscular Hemoglobin Concent 33g/dL (31-37) Red Cell Distribution Width 13.3% (11.5-14.5) Platelet Count 125x10^3/uL (140-400) Neutrophils (%) (Auto) 85% (31-73) Lymphocytes (%) (Auto) 8% (24-48) Monocytes (%) (Auto) 8% (0-9) Eosinophils (%) (Auto) 0% (0-3) Basophils (%) (Auto) 0% (0-3) Neutrophils # (Auto) 12.7x10^3uL (1.8-7.7) Lymphocytes # (Auto) 1.1x10^3/uL (1.0-4.8) Monocytes # (Auto) 1.1x10^3/uL (0.0-1.1) Eosinophils # (Auto) 0.0x10^3/uL (0.0-0.7) Basophils # (Auto) 0.0x10^3/uL (0.0-0.2) Sodium Level 136mmol/L (136-145) Potassium Level 4.3mmol/L (3.5-5.1) Chloride Level 101mmol/L (98-107) Carbon Dioxide Level 26mmol/L (21-32) Anion Gap 9 (6-14) Blood Urea Nitrogen 25mg/dL (8-26) Creatinine 1.2mg/dL (0.7-1.3) Estimated GFR (Cockcroft-Gault) 61.1 Glucose Level 254mg/dL (70-99) Calcium Level 9.1mg/dL (8.5-10.1) Microbiology 11/16/16 Sputum Culture - Preliminary, Resulted 11/16/16 Sputum Result 1 - Preliminary, Resulted Medications Current Medications Albuterol/ Ipratropium (Duoneb) 3 ml 1X ONCE NEB Last administered on 23:06; Start 11/15/16 at 22:45; Stop 11/15/16 at 23:13; Status DC Methylprednisolone Sodium Succinate (Solu-Medrol 125mg Vial) 125 mg 1X ONCE IV Last administered on 11/15/16 23:39; Start 11/15/16 at 22:45; Stop 11/15/16 at 23:13; Status DC Albuterol/ Ipratropium (Duoneb) 3 ml 1X ONCE NEB Last administered on 23:46; Start 11/15/16 at 23:45; Stop 11/15/16 at 23:56; Status DC Ondansetron HCl (Zofran) 4 mg PRN Q8HRS PRN IV NAUSEA/VOMITING; Start 11/16/16 at 00:45; Stop 11/17/16 at 00:44; Status DC Acetaminophen (Tylenol) 650 mg PRN Q4HRS PRN PO FEVER Last administered on 11/16 20:49; Start 11/16/16 at 00:45; Stop 11/17/16 at 00:44; Status DC Albuterol/ Ipratropium (Duoneb) 3 ml RTQID NEB Last administered on 11/16/16 07:27; Start 11/16/16 at 08:00; Stop 11/16/16 at 08:36; Status DC Info (Do NOT chart on this placeholder) 1 each 1X ONCE MC ; Start 11/16/16 at 02:30; Stop 11/16/16 at 02:31; Status UNV Pneumococcal Polyvalent Vaccine (Do NOT chart on this placeholder) 1 each 1X ONCE MC ; Start 11/16/16 at 02:30; Stop 11/16/16 at 02:31; Status UNV Influenza Virus Vaccine Quadrival (Fluarix Quad 1685-0252 Syringe) 0.5 ml ONCE ONCE VAX IM ; Start 11/16/16 at 09:00; Stop 11/16/16 at 09:01; Status DC Pneumococcal Polyvalent Vaccine (Pneumovax 23) 0.5 ml ONCE ONCE VAX IM ; Start 11/16/16 at 09:00; Stop 11/16/16 at 09:01; Status DC Prednisone (Prednisone) 40 mg DAILY PO Last administered on 11/17/16 08:44; Start 11/16/16 at 09:00 Albuterol/ Ipratropium (Duoneb) 3 ml Q4HRS W/A NEB Last administered on 14:54; Start 11/16/16 at 10:00 Budesonide (Pulmicort) 0.5 mg RTBID NEB Last administered on 11/17/16 08:16; Start 11/16/16 at 09:00 Doxycycline Hyclate (Vibra-Tab) 100 mg BID PO ; Start 11/16/16 at 09:00; Stop at 09:00; Status DC Nicotine Polacrilex (Nicorette Gum) 1 each PRN Q1HR PRN BC SMOKING CESSATION; Start 11/16/16 at 08:45 Nicotine (Nicoderm Cq 7mg) 1 patch PRN DAILY PRN TD SMOKING CESSATION; Start at 08:45 Oxycodone HCl (Roxicodone) 5 mg PRN Q6HRS PRN PO PAIN Last administered on 11/17 03:28; Start 11/16/16 at 08:45 Lidocaine (Lidoderm) 1 patch DAILY TD Last administered on 11/17/16 08:48; Start 11/16/16 at 09:00 Guaifenesin (Robitussin Dm) 10 ml PRN Q6HRS PRN PO COUGH; Start 11/16/16 at 08: 45; Stop 11/16/16 at 17:03; Status DC Levofloxacin (Levaquin) 750 mg DAILY06 PO Last administered on 11/17/16 05:55 ; Start 11/17/16 at 06:00 Levofloxacin (Levaquin) 750 mg 1X ONCE PO Last administered on 11/16/16 10:59 ; Start 11/16/16 at 09:00; Stop 11/16/16 at 09:01; Status DC Clopidogrel Bisulfate (Plavix) 75 mg DAILYWBKFT PO Last administered on 08:44; Start 11/17/16 at 08:00 Clopidogrel Bisulfate (Plavix) 75 mg 1X ONCE PO Last administered on 11:01; Start 11/16/16 at 09:00; Stop 11/16/16 at 09:01; Status DC Carvedilol (Coreg) 3.125 mg BIDWMEALS PO Last administered on 11/17/16 08:45; Start 11/16/16 at 09:00 Atorvastatin Calcium (Lipitor) 20 mg QHS PO Last administered on 11/16/16 20: 42; Start 11/16/16 at 21:00 Aspirin (Children'S Aspirin) 81 mg DAILYWBKFT PO Last administered on 08:44; Start 11/17/16 at 08:00 Pantoprazole Sodium (Protonix) 40 mg DAILYAC PO Last administered on 11/17/16 05:55; Start 11/17/16 at 07:30 Pantoprazole Sodium (Protonix) 40 mg 1X ONCE PO Last administered on 11:00; Start 11/16/16 at 10:00; Stop 11/16/16 at 10:01; Status DC Montelukast Sodium (Singulair) 10 mg QHS PO Last administered on 11/16/16 20: 42; Start 11/16/16 at 21:00 Guaifenesin (Robitussin Dm) 10 ml PRN Q6HRS PRN PO COUGH Last administered on 14:33; Start 11/16/16 at 17:15 Acetaminophen/ Codeine Phosphate (Tylenol #3) 1 tab PRN Q6HRS PRN PO cough Last administered on 11/17/16 15:04; Start 11/17/16 at 15:00 Active Scripts Active Reported Methocarbamol 500 Mg Tablet 500 Mg PO QID Metoprolol Tartrate 50 Mg Tablet 1 Tab PO BID Aspir 81 (Aspirin) 81 Mg Tablet.dr 1 Tab PO DAILY Naproxen 500 Mg Tablet.dr 500 Mg PO PRN Pantoprazole Sodium 40 Mg Tablet.dr 1 Tab PO DAILY Clopidogrel (Clopidogrel Bisulfate) 75 Mg Tablet 1 Tab PO DAILY Simvastatin 80 Mg Tablet 1 Tab PO DAILY Vitals/I & O Vital Sign - Last 24 Hours 11/16/16 11/16/16 11/16/16 11/16/16 16:10 16:12 17:15 18:15 Pulse 113 B/P 135/79 Pulse Ox 96 96 O2 Delivery Room Air Room Air O2 Flow Rate 2.0 2.0 11/16/16 11/16/16 11/16/16 11/16/16 19:45 20:00 20:13 20:16 Temp 98.8 98.8 Pulse 100 Resp 20 B/P 112/64 Pulse Ox 95 98 98 O2 Delivery Room Air Room Air Room Air Room Air 11/16/16 11/17/16 11/17/16 11/17/16 22:22 03:14 03:28 04:30 Temp 98.1 98.1 98.1 98.1 Pulse 105 91 Resp 20 20 20 B/P 126/78 124/67 Pulse Ox 97 95 97 97 O2 Delivery Room Air Room Air Room Air Room Air 11/17/16 11/17/16 11/17/16 11/17/16 07:00 08:00 08:16 08:45 Temp 98.4 98.4 Pulse 97 97 Resp 20 B/P 129/76 129/76 Pulse Ox 94 98 O2 Delivery Room Air Room Air Room Air 11/17/16 11/17/16 11/17/16 11/17/16 11:00 12:06 14:55 15:00 Temp 97.7 98.7 97.7 98.7 Pulse 101 94 Resp 20 20 B/P 126/77 128/83 Pulse Ox 94 96 O2 Delivery Room Air Room Air Room Air Room Air 11/17/16 15:04 O2 Delivery Room Air Intake and Output 11/16/16 11/16/16 11/17/16 15:00 23:00 07:00 Intake Total 300 ml 1020 ml 500 ml Balance 300 ml 1020 ml 500 ml MINI BILLS MD Nov 17, 2016 15:43
[2016-11-17 19:00] VITALS: BP 123/65
[2016-11-17] MEDS: ATORVASTATIN CALCIUM 20 MG TABLET PO SCH (20:57)
[2016-11-17] MEDS: MONTELUKAST SODIUM 10 MG TABLET. PO SCH (20:57)
[2016-11-17 23:00] VITALS: BP 132/90
[2016-11-18] MEDS: GUAIFENESIN DM 200MG/20MG 10 ML SYRUP. PO PRN (02:48)
[2016-11-18 03:09] VITALS: BP 132/87
[2016-11-18] MEDS: IPRATRPIUM/ALBUTEROL 0.5/2.5MG 3 ML NEBU. NEB SCH ×4 (06:00→15:25)
[2016-11-18] MEDS: LEVOFLOXACIN 750 MG TABLET. PO SCH (06:30)
[2016-11-18] MEDS: PANTOPRAZOLE 40 MG TABLET. PO SCH (06:31)
[2016-11-18 07:00] VITALS: BP 138/93
[2016-11-18] MEDS: BUDESONIDE 0.5 MG/2 ML NEBU NEB SCH (07:43)
[2016-11-18] MEDS: ASPIRIN 81 MG TAB.CHEW PO SCH (08:07)
[2016-11-18] MEDS: CLOPIDOGREL BISULFATE 75 MG TABLET PO SCH (08:07)
[2016-11-18] MEDS: CARVEDILOL 3.125 MG TABLET PO SCH ×2 (08:07→17:09)
[2016-11-18] MEDS: ACETAMINOPHEN/CODEINE 300/30MG TABLET PO PRN ×2 (08:08→14:38)
[2016-11-18] MEDS: PREDNISONE 20 MG TABLET PO SCH (08:08)
[2016-11-18] MEDS: LIDOCAINE (700MG/PATCH) PATCH. TD SCH (08:08)
[2016-11-18 11:00] VITALS: BP 134/83
--- NOTE | 2016-11-18 13:43 | PDOC ---
PULMONARY PROGRESS NOTES Subjective no soa Vitals Vital Signs Date Time Temp Pulse Resp B/P Pulse Ox O2 Delivery O2 Flow Rate FiO2 11/18/16 11:40 Room Air 11/18/16 11:00 97.5 93 20 134/83 92 97.5 General: Alert, No acute distress Lungs: Clear Cardiovascular: S1 Abdomen: Soft Neuro Exam: Alert Extremities: No Edema Skin: Warm Labs Laboratory Tests Test 11/17/16 06:40 White Blood Count 15.0x10^3/uL (4.0-11.0) Red Blood Count 4.91x10^6/uL (4.30-5.70) Hemoglobin 14.0g/dL (13.0-17.5) Hematocrit 42.6% (39.0-53.0) Mean Corpuscular Volume 87fL (79-100) Mean Corpuscular Hemoglobin 29pg (25-35) Mean Corpuscular Hemoglobin Concent 33g/dL (31-37) Red Cell Distribution Width 13.3% (11.5-14.5) Platelet Count 125x10^3/uL (140-400) Neutrophils (%) (Auto) 85% (31-73) Lymphocytes (%) (Auto) 8% (24-48) Monocytes (%) (Auto) 8% (0-9) Eosinophils (%) (Auto) 0% (0-3) Basophils (%) (Auto) 0% (0-3) Neutrophils # (Auto) 12.7x10^3uL (1.8-7.7) Lymphocytes # (Auto) 1.1x10^3/uL (1.0-4.8) Monocytes # (Auto) 1.1x10^3/uL (0.0-1.1) Eosinophils # (Auto) 0.0x10^3/uL (0.0-0.7) Basophils # (Auto) 0.0x10^3/uL (0.0-0.2) Sodium Level 136mmol/L (136-145) Potassium Level 4.3mmol/L (3.5-5.1) Chloride Level 101mmol/L (98-107) Carbon Dioxide Level 26mmol/L (21-32) Anion Gap 9 (6-14) Blood Urea Nitrogen 25mg/dL (8-26) Creatinine 1.2mg/dL (0.7-1.3) Estimated GFR (Cockcroft-Gault) 61.1 Glucose Level 254mg/dL (70-99) Calcium Level 9.1mg/dL (8.5-10.1) Medications Active Scripts Medications Dose Route/Sig Days Date Category Methocarbamol 500 Mg Tablet 500 Mg PO QID 11/16/16 Reported Metoprolol Tartrate 50 Mg Tablet 1 Tab PO BID 11/16/16 Reported Aspir 81 (Aspirin) 81 Mg Tablet.dr 1 Tab PO DAILY 11/16/16 Reported Naproxen 500 Mg Tablet.dr 500 Mg PO PRN 11/16/16 Reported Pantoprazole Sodium 40 Mg Tablet.dr 1 Tab PO DAILY 11/16/16 Reported Clopidogrel (Clopidogrel Bisulfate) 75 Mg Tablet 1 Tab PO DAILY 11/16/16 Reported Simvastatin 80 Mg Tablet 1 Tab PO DAILY 11/16/16 Reported Impression . 1. Dyspnea, multifactorial in etiology. 2. Acute exacerbation of chronic obstructive pulmonary disease. 3. Acute bronchitis. 4. Coronary artery disease, status post coronary artery bypass graft. 5. Tobacco habituation. 6. Obesity and excessive daytime sleepiness, probable obstructive sleep apnea-hypopnea syndrome. Pt says [facility] . 1. Titrate FiO2 to keep O2 saturation 92%./ 6 min walk today 2. Bronchodilator. 3. Inhaled corticosteroid. 4. steroid taper 5. Sputum culture. 6. Lovenox for DVT prophylaxis. 7. Lose weight and exercise. 8. I had a long discussion with him regarding smoking cessation. I have advised him to stop smoking forever. 9. I agree with nicotine patch. d/w PCP/ OK with [facility] ANTONIO LONG MD Nov 18, 2016 13:43
--- NOTE | 2016-11-18 13:45 | PDOC ---
PROGRESS NOTES Chief Complaint Chief Complaint ASSESSMENT AND PLAN: 1. COPD exacerbation w/ acute bronchitis: cont nebs, suppl O2, prednisone taper, cough meds. D/w Dr Saumels 2. SIRS w/ respir dysfxn: improving 3. CAD: hx CABG and stent. no acute issues. cont BB, ASA, plavix and statin 4. GERD: PPI 5. Dispo: home today. Vitals Vitals Vital Signs Date Time Temp Pulse Resp B/P Pulse Ox O2 Delivery O2 Flow Rate FiO2 11/18/16 11:40 Room Air 11/18/16 11:00 97.5 93 20 134/83 92 97.5 Physical Exam General: Alert, Oriented X3, Cooperative Heart: Regular rate Lungs: Clear Abdomen: Normal bowel sounds, Soft Extremities: No clubbing, No edema, Normal pulses Skin: No rashes Review of Systems Review of Systems on room air w/o distress Comment Review of Relevant I have reviewed the following items ana (where applicable) has been applied. Labs Laboratory Tests Test 11/17/16 06:40 White Blood Count 15.0x10^3/uL (4.0-11.0) Red Blood Count 4.91x10^6/uL (4.30-5.70) Hemoglobin 14.0g/dL (13.0-17.5) Hematocrit 42.6% (39.0-53.0) Mean Corpuscular Volume 87fL (79-100) Mean Corpuscular Hemoglobin 29pg (25-35) Mean Corpuscular Hemoglobin Concent 33g/dL (31-37) Red Cell Distribution Width 13.3% (11.5-14.5) Platelet Count 125x10^3/uL (140-400) Neutrophils (%) (Auto) 85% (31-73) Lymphocytes (%) (Auto) 8% (24-48) Monocytes (%) (Auto) 8% (0-9) Eosinophils (%) (Auto) 0% (0-3) Basophils (%) (Auto) 0% (0-3) Neutrophils # (Auto) 12.7x10^3uL (1.8-7.7) Lymphocytes # (Auto) 1.1x10^3/uL (1.0-4.8) Monocytes # (Auto) 1.1x10^3/uL (0.0-1.1) Eosinophils # (Auto) 0.0x10^3/uL (0.0-0.7) Basophils # (Auto) 0.0x10^3/uL (0.0-0.2) Sodium Level 136mmol/L (136-145) Potassium Level 4.3mmol/L (3.5-5.1) Chloride Level 101mmol/L (98-107) Carbon Dioxide Level 26mmol/L (21-32) Anion Gap 9 (6-14) Blood Urea Nitrogen 25mg/dL (8-26) Creatinine 1.2mg/dL (0.7-1.3) Estimated GFR (Cockcroft-Gault) 61.1 Glucose Level 254mg/dL (70-99) Calcium Level 9.1mg/dL (8.5-10.1) Microbiology 11/16/16 Sputum Culture - Final, Complete 11/16/16 Sputum Result 1 - Final, Complete Medications Current Medications Albuterol/ Ipratropium (Duoneb) 3 ml 1X ONCE NEB Last administered on 23:06; Start 11/15/16 at 22:45; Stop 11/15/16 at 23:13; Status DC Methylprednisolone Sodium Succinate (Solu-Medrol 125mg Vial) 125 mg 1X ONCE IV Last administered on 11/15/16 23:39; Start 11/15/16 at 22:45; Stop 11/15/16 at 23:13; Status DC Albuterol/ Ipratropium (Duoneb) 3 ml 1X ONCE NEB Last administered on 23:46; Start 11/15/16 at 23:45; Stop 11/15/16 at 23:56; Status DC Ondansetron HCl (Zofran) 4 mg PRN Q8HRS PRN IV NAUSEA/VOMITING; Start 11/16/16 at 00:45; Stop 11/17/16 at 00:44; Status DC Acetaminophen (Tylenol) 650 mg PRN Q4HRS PRN PO FEVER Last administered on 11/16 20:49; Start 11/16/16 at 00:45; Stop 11/17/16 at 00:44; Status DC Albuterol/ Ipratropium (Duoneb) 3 ml RTQID NEB Last administered on 11/16/16 07:27; Start 11/16/16 at 08:00; Stop 11/16/16 at 08:36; Status DC Info (Do NOT chart on this placeholder) 1 each 1X ONCE MC ; Start 11/16/16 at 02:30; Stop 11/16/16 at 02:31; Status UNV Pneumococcal Polyvalent Vaccine (Do NOT chart on this placeholder) 1 each 1X ONCE MC ; Start 11/16/16 at 02:30; Stop 11/16/16 at 02:31; Status UNV Influenza Virus Vaccine Quadrival (Fluarix Quad [id number] Syringe) 0.5 ml ONCE ONCE VAX IM ; Start 11/16/16 at 09:00; Stop 11/16/16 at 09:01; Status DC Pneumococcal Polyvalent Vaccine (Pneumovax 23) 0.5 ml ONCE ONCE VAX IM ; Start 11/16/16 at 09:00; Stop 11/16/16 at 09:01; Status DC Prednisone (Prednisone) 40 mg DAILY PO Last administered on 11/18/16 08:08; Start 11/16/16 at 09:00 Albuterol/ Ipratropium (Duoneb) 3 ml Q4HRS W/A NEB Last administered on 11:39; Start 11/16/16 at 10:00 Budesonide (Pulmicort) 0.5 mg RTBID NEB Last administered on 11/18/16 07:43; Start 11/16/16 at 09:00 Doxycycline Hyclate (Vibra-Tab) 100 mg BID PO ; Start 11/16/16 at 09:00; Stop at 09:00; Status DC Nicotine Polacrilex (Nicorette Gum) 1 each PRN Q1HR PRN BC SMOKING CESSATION; Start 11/16/16 at 08:45 Nicotine (Nicoderm Cq 7mg) 1 patch PRN DAILY PRN TD SMOKING CESSATION; Start at 08:45 Oxycodone HCl (Roxicodone) 5 mg PRN Q6HRS PRN PO PAIN Last administered on 11/17 18:54; Start 11/16/16 at 08:45 Lidocaine (Lidoderm) 1 patch DAILY TD Last administered on 11/18/16 08:08; Start 11/16/16 at 09:00 Guaifenesin (Robitussin Dm) 10 ml PRN Q6HRS PRN PO COUGH; Start 11/16/16 at 08: 45; Stop 11/16/16 at 17:03; Status DC Levofloxacin (Levaquin) 750 mg DAILY06 PO Last administered on 11/18/16 06:30 ; Start 11/17/16 at 06:00 Levofloxacin (Levaquin) 750 mg 1X ONCE PO Last administered on 11/16/16 10:59 ; Start 11/16/16 at 09:00; Stop 11/16/16 at 09:01; Status DC Clopidogrel Bisulfate (Plavix) 75 mg DAILYWBKFT PO Last administered on 08:07; Start 11/17/16 at 08:00 Clopidogrel Bisulfate (Plavix) 75 mg 1X ONCE PO Last administered on 11:01; Start 11/16/16 at 09:00; Stop 11/16/16 at 09:01; Status DC Carvedilol (Coreg) 3.125 mg BIDWMEALS PO Last administered on 11/18/16 08:07; Start 11/16/16 at 09:00 Atorvastatin Calcium (Lipitor) 20 mg QHS PO Last administered on 11/17/16 20: 57; Start 11/16/16 at 21:00 Aspirin (Children'S Aspirin) 81 mg DAILYWBKFT PO Last administered on 08:07; Start 11/17/16 at 08:00 Pantoprazole Sodium (Protonix) 40 mg DAILYAC PO Last administered on 11/18/16 06:31; Start 11/17/16 at 07:30 Pantoprazole Sodium (Protonix) 40 mg 1X ONCE PO Last administered on 11:00; Start 11/16/16 at 10:00; Stop 11/16/16 at 10:01; Status DC Montelukast Sodium (Singulair) 10 mg QHS PO Last administered on 11/17/16 20: 57; Start 11/16/16 at 21:00 Guaifenesin (Robitussin Dm) 10 ml PRN Q6HRS PRN PO COUGH Last administered on 02:48; Start 11/16/16 at 17:15 Acetaminophen/ Codeine Phosphate (Tylenol #3) 1 tab PRN Q6HRS PRN PO cough Last administered on 11/18/16t 08:08; Start 11/17/16 at 15:00 Active Scripts Active Reported Methocarbamol 500 Mg Tablet 500 Mg PO QID Metoprolol Tartrate 50 Mg Tablet 1 Tab PO BID Aspir 81 (Aspirin) 81 Mg Tablet. 1 Tab PO DAILY Naproxen 500 Mg Tablet. 500 Mg PO PRN Pantoprazole Sodium 40 Mg Tablet.dr 1 Tab PO DAILY Clopidogrel (Clopidogrel Bisulfate) 75 Mg Tablet 1 Tab PO DAILY Simvastatin 80 Mg Tablet 1 Tab PO DAILY Vitals/I & O Vital Sign - Last 24 Hours 11/17/16 11/17/16 11/17/16 11/17/16 14:55 15:00 15:04 17:24 Temp 98.7 98.7 Pulse 94 94 Resp 20 B/P 128/83 128/83 Pulse Ox 96 O2 Delivery Room Air Room Air Room Air 11/17/16 11/17/16 11/17/16 11/17/16 18:54 19:00 19:38 19:41 Temp 97.5 97.5 Pulse 92 Resp 20 B/P 123/65 Pulse Ox 94 98 98 O2 Delivery Room Air Room Air Room Air Room Air 11/17/16 11/17/16 11/17/16 11/18/16 19:58 20:27 23:00 03:09 Temp 97.7 98.7 97.7 98.7 Pulse 98 93 Resp 20 20 B/P 132/90 132/87 Pulse Ox 94 95 O2 Delivery Room Air Room Air Room Air Room Air 11/18/16 11/18/16 11/18/16 11/18/16 07:00 07:30 07:46 07:55 Temp 98.2 98.2 Pulse 89 Resp 20 B/P 138/93 Pulse Ox 93 97 97 O2 Delivery Room Air Room Air Room Air Room Air 11/18/16 11/18/16 11/18/16 11/18/16 08:07 08:08 09:35 11:00 Temp 97.5 97.5 Pulse 89 93 Resp 20 B/P 138/93 134/83 Pulse Ox 92 O2 Delivery Room Air Room Air Room Air 11/18/16 11:40 O2 Delivery Room Air Intake and Output 11/17/16 11/17/16 11/18/16 15:00 23:00 07:00 Intake Total 500 ml 840 ml Balance 500 ml 840 ml MINI BILLS MD Nov 18, 2016 13:45
[2016-11-18] MEDS ORDERED: MONT10TA9 PO (13:54)
[2016-11-18] MEDS ORDERED: PANT40TA5 PO (13:54)
[2016-11-18] MEDS ORDERED: PRED-220 PO (13:54)
[2016-11-18] MEDS ORDERED: LEVO750T31 PO (13:54)
[2016-11-18] MEDS ORDERED: BUDE10.2 IH (13:54)
--- NOTE | 2016-11-18 13:55 | DISCH ---
DISCHARGE INSTRUCTIONS Condition on Discharge Condition on Discharge: Stable Activity After Discharge Activity Instructions for Disc: No restrictions Diet after Discharge Diet after Discharge: Regular Contacting the DR. after DC Call your doctor for: If your condition worsens Follow-Up Follow up with: PCP in 1 week MINI BILLS MD Nov 18, 2016 13:55
[2016-11-18 15:00] VITALS: BP 132/84
[2016-11-18 17:09] VITALS: BP 132/84
--- NOTE | 2016-11-21 00:52 | DS ---
DATE OF DISCHARGE: 11/18/2016 CHIEF COMPLAINT: COPD exacerbation. HOSPITAL COURSE: The patient is a 61-year-old gentleman with history of COPD who presented to the Emergency Room with acute shortness of breath, which has been getting worse and worse over several days. He was found with acute bronchitis/COPD exacerbation and admitted, treated with nebulizers, prednisone, antibiotics and supplemental O2. He actually recovered his respiratory status fairly quickly. Did not require any supplemental O2 by day 2. Dr. Samuels from Pulmonary was following. He was deemed appropriate for discharge on the . PHYSICAL EXAMINATION: Please refer to note from same day. DISCHARGE DATE: 11/18/2016 DISCHARGE DISPOSITION: To home. DISCHARGE CONDITION: Improved. DISCHARGE DIAGNOSIS: Chronic obstructive pulmonary disease exacerbation. DISCHARGE MEDICATIONS: Please refer to MAR. DISCHARGE INSTRUCTIONS: The patient will follow up with PCP in 1-2 weeks. MINI BILLS MD DR: UR/nts JOB#: [id number] / [id number] [facility] BRENT Lange
== END 2016-11-18 18:34 | disposition home or self-care (01) | DRG 191 ==
LOC: ER 22:33 → 5 NORTH 11-16 00:35
PROVIDERS: ADMIT Internal Medicine; ATTEND Internal Medicine
DX: J44.0 Chronic obstructive pulmonary disease with (acute) lower respiratory infection (principal); R65.10 Systemic inflammatory response syndrome (SIRS) of non-infectious origin without acute organ dysfunction; J20.9 Acute bronchitis, unspecified; J44.1 Chronic obstructive pulmonary disease with (acute) exacerbation; E66.9 Obesity, unspecified; F17.210 Nicotine dependence, cigarettes, uncomplicated; G47.33 Obstructive sleep apnea (adult) (pediatric); I10 Essential (primary) hypertension; I25.10 Atherosclerotic heart disease of native coronary artery without angina pectoris; M54.5 Low back pain; J45.909 Unspecified asthma, uncomplicated; K21.9 Gastro-esophageal reflux disease without esophagitis; Z82.5 Family history of asthma and other chronic lower respiratory diseases; Z95.1 Presence of aortocoronary bypass graft; Z95.5 Presence of coronary angioplasty implant and graft; Z88.1 Allergy status to other antibiotic agents
CPT/HCPCS: 36415; 71010; 80048; 84484; 85007; 85027; 87070; 87205; 87804; 90686; 90732; 93005; 94250; 94620; 94640; 94760; 96374; J2930; J7512; J7620; 99285-25

== ENCOUNTER 2017-12-13 03:50 | Inpatient (IN) | payer OTHER ==
[2017-12-13 04:33] LABS: ADD MAN DIFF? NO
[2017-12-13] MEDS: IPRATRPIUM/ALBUTEROL 0.5/2.5MG 3 ML NEBU. NEB ×10 (04:35→20:01)
[2017-12-13] MEDS: ALBUTEROL SULFATE 2.5 MG/3 ML NEBU. INH ×2 (04:35)
[2017-12-13 04:40] LABS: BASO % 0 % (0-3); EOS # 0.1 x10^3/uL (0.0-0.7); EOS % 1 % (0-3); HEMATOCRIT 44.9 % (39.0-53.0); LYMPH # 1.5 x10^3/uL (1.0-4.8); LYMPH % 17 % (24-48); MEAN CORPUSCULAR HEMOGLOBIN 29 pg (25-35); MEAN CORPUSCULAR HGB CONC 33 g/dL (31-37); MEAN CORPUSCULAR VOLUME 87 fL (79-100); MONO # 0.7 x10^3/uL (0.0-1.1); MONO % 8 % (0-9); NEUT # 6.7 x10^3uL (1.8-7.7); NEUT % 75 % (31-73); PLATELET COUNT 135 x10^3/uL (140-400); RED BLOOD COUNT 5.19 x10^6/uL (4.30-5.70); RED CELL DISTRIBUTION WIDTH 13.8 % (11.5-14.5)
[2017-12-13] MEDS: methylPREDNISolone SOD SUCC PF 125 MG/2 ML VIAL. IV ×2 (04:49)
[2017-12-13 04:50] LABS: PROTHROMBIN TIME PATIENT 12.9 SEC (11.7-14.0)
[2017-12-13] MEDS: ASPIRIN 325 MG TABLET PO ×2 (04:50)
[2017-12-13 04:51] LABS: PARTIAL THROMBOPLASTIN TIME 29 SEC (24-38)
[2017-12-13 05:10] LABS: ALBUMIN/GLOBULIN RATIO 1.2 (1.0-1.7); ALK PHOS 72 U/L (46-116); ALT (SGPT) 31 U/L (16-63); ANION GAP 12 (6-14); AST (SGOT) 18 U/L (15-37); BLOOD UREA NITROGEN 16 mg/dL (8-26); BUN/CREATININE RATIO 16 (6-20); CALCIUM 9.5 mg/dL (8.5-10.1); CARBON DIOXIDE 27 mmol/L (21-32); CHLORIDE 100 mmol/L (98-107); GFR 75.2; SODIUM 139 mmol/L (136-145); TOTAL BILIRUBIN 0.4 mg/dL (0.2-1.0); TOTAL PROTEIN 7.4 g/dL (6.4-8.2)
[2017-12-13 05:11] LABS: GLUCOSE 245 mg/dL (70-99)
[2017-12-13 05:12] LABS: LACTIC ACID 1.8 mmol/L (0.4-2.0); TROPONINI < 0.017 ng/mL (0.000-0.055)
[2017-12-13 05:16] LABS: NT-PRO BNP 704 pg/mL (0-124)
[2017-12-13 05:28] LABS: INFLUENZA A PATIENT NEGATIVE (NEGATIVE); INFLUENZA B PATIENT NEGATIVE (NEGATIVE); OBC FLU VALID
[2017-12-13] MEDS ORDERED: ONDANSETRON PF 4 MG/2 ML VIAL. IV ×2 (05:30)
[2017-12-13] MEDS ORDERED: MORPHINE SULFATE 2 MG/ML DISP.SYRIN. IV ×2 (05:30)
[2017-12-13] MEDS: AZITHRMYCN 500MG IVPB FOR OMNI 250 ML IV ×2 (06:10)
[2017-12-13 08:03] LABS: POC GLUCOSE 355 mg/dL (70-99)
[2017-12-13] MEDS ORDERED: ALBUTEROL SULFATE 2.5 MG/3 ML NEBU. NEB ×2 (08:15)
[2017-12-13] MEDS: methylPREDNISolone SOD SUCC PF 40 MG/ML VIAL. IV ×4 (08:48→21:00)
[2017-12-13] MEDS: PANTOPRAZOLE 40 MG TABLET.DR. PO ×2 (08:48)
[2017-12-13] MEDS: BUDESONIDE 0.5 MG/2 ML NEBU. NEB ×4 (09:09→20:01)
[2017-12-13 09:42] LABS: TROPONINI < 0.017 ng/mL (0.000-0.055)
[2017-12-13] MEDS: ENOXAPARIN 40 MG/0.4 ML SYRINGE. SQ ×2 (11:25)
[2017-12-13] MEDS: ACETAMINOPHEN 325 MG TABLET. PO ×2 (11:30)
[2017-12-13 11:39] LABS: POC GLUCOSE 453 mg/dL (70-99)
[2017-12-13 11:52] LABS: TROPONINI < 0.017 ng/mL (0.000-0.055)
[2017-12-13] MEDS: NYSTATIN 100,000 UNIT/GM TOPICAL CREAM 15GM TUBE. TP ×4 (13:00→21:55)
[2017-12-13] MEDS ORDERED: DEXTROSE 50% 25 GM / 50ML DISP.SYRIN. IV ×2 (13:15)
[2017-12-13] MEDS: METHOCARBAMOL 500 MG TABLET PO ×6 (13:33→21:50)
[2017-12-13] MEDS: CLOPIDOGREL BISULFATE 75 MG TABLET PO ×2 (13:33)
[2017-12-13] MEDS: BENZOCAINE/MENTHOL LOZENGE. PO ×4 (13:33→21:51)
[2017-12-13] MEDS: METOPROLOL TART IMMED RELEASE 50 MG TABLET. PO ×4 (13:34→22:02)
[2017-12-13] MEDS: NICOTINE 21MG PATCH. TD ×2 (13:35)
[2017-12-13] MEDS: INSULIN ASPART 300 UNITS/3 ML INSULN.PEN SQ ×8 (13:41→22:30)
[2017-12-13 16:35] LABS: POC GLUCOSE 458 mg/dL (70-99)
[2017-12-13 20:44] LABS: POC GLUCOSE 405 mg/dL (70-99)
[2017-12-13] MEDS ORDERED: NON FORMULARY ITEM (Budesonide/Formoterol Fumarate (Symbicort 160-4.5 Mcg Inhaler) 2 PUFF) IH ×2 (21:00)
[2017-12-13] MEDS: LACTOBACILLUS RHAMNOSUS GG 1 CAPSULE. PO ×2 (21:50)
[2017-12-13] MEDS: SIMVASTATIN 40 MG TABLET. PO ×2 (21:51)
[2017-12-13] MEDS: MONTELUKAST SODIUM 10 MG TABLET. PO ×2 (21:51)
[2017-12-13] MEDS: INSULIN DETEMIR 300 UNITS/3 ML INSULN.PEN. SQ ×2 (22:29)
[2017-12-14] MEDS: ACETAMINOPHEN 325 MG TABLET. PO ×2 (02:04)
[2017-12-14] MEDS: BENZOCAINE/MENTHOL LOZENGE. PO ×4 (02:06→10:51)
[2017-12-14 05:21] LABS: BASO % 0 % (0-3); EOS % 0 % (0-3); HEMATOCRIT 45.4 % (39.0-53.0); LYMPH # 0.8 x10^3/uL (1.0-4.8); LYMPH % 6 % (24-48); MEAN CORPUSCULAR HEMOGLOBIN 29 pg (25-35); MEAN CORPUSCULAR HGB CONC 33 g/dL (31-37); MEAN CORPUSCULAR VOLUME 89 fL (79-100); MONO # 0.6 x10^3/uL (0.0-1.1); MONO % 5 % (0-9); NEUT % 89 % (31-73); PLATELET COUNT 150 x10^3/uL (140-400); RED BLOOD COUNT 5.13 x10^6/uL (4.30-5.70); RED CELL DISTRIBUTION WIDTH 13.4 % (11.5-14.5); WHITE BLOOD COUNT 13.5 x10^3/uL (4.0-11.0)
[2017-12-14 05:32] LABS: ADD MAN DIFF? YES
[2017-12-14 05:39] LABS: ANION GAP 10 (6-14); BLOOD UREA NITROGEN 26 mg/dL (8-26); CALCIUM 9.9 mg/dL (8.5-10.1); CARBON DIOXIDE 27 mmol/L (21-32); CHLORIDE 97 mmol/L (98-107); CREATININE 1.1 mg/dL (0.7-1.3); GFR 67.4; GLUCOSE 272 mg/dL (70-99); POTASSIUM 4.7 mmol/L (3.5-5.1); SODIUM 134 mmol/L (136-145)
[2017-12-14] MEDS ORDERED: PANTOPRAZOLE 40 MG TABLET.DR. PO ×4 (07:30→09:00)
[2017-12-14 07:55] LABS: POC GLUCOSE 275 mg/dL (70-99)
[2017-12-14 08:56] LABS: % ATYL 1 % (0-0); % BANDS 2 % (0-9); % LYMPHS 4 % (24-48); % MONOS 1 % (0-10); % SEGS 92 % (35-66); PLT ESTIMATE ADEQUATE (ADEQUATE)
[2017-12-14] MEDS: methylPREDNISolone SOD SUCC PF 40 MG/ML VIAL. IV ×4 (08:58→21:27)
[2017-12-14] MEDS: ENOXAPARIN 40 MG/0.4 ML SYRINGE. SQ ×2 (08:59)
[2017-12-14] MEDS: NICOTINE 21MG PATCH. TD ×2 (09:00)
[2017-12-14] MEDS ORDERED: predniSONE 10 MG TABLET PO ×2 (09:00)
[2017-12-14] MEDS: INSULIN ASPART 300 UNITS/3 ML INSULN.PEN SQ ×10 (09:01→21:38)
[2017-12-14] MEDS: METHOCARBAMOL 500 MG TABLET PO ×8 (09:07→21:27)
[2017-12-14] MEDS: NYSTATIN 100,000 UNIT/GM TOPICAL CREAM 15GM TUBE. TP ×4 (09:07→21:00)
[2017-12-14] MEDS: PANTOPRAZOLE 40 MG TABLET.DR. PO ×2 (09:07)
[2017-12-14] MEDS: ASPIRIN ENTERIC COATED 81 MG TABLET.DR. PO ×2 (09:07)
[2017-12-14] MEDS: LACTOBACILLUS RHAMNOSUS GG 1 CAPSULE. PO ×4 (09:08→21:27)
[2017-12-14] MEDS: METOPROLOL TART IMMED RELEASE 50 MG TABLET. PO ×4 (09:08→21:00)
[2017-12-14] MEDS: CLOPIDOGREL BISULFATE 75 MG TABLET PO ×2 (09:08)
[2017-12-14] MEDS: IPRATRPIUM/ALBUTEROL 0.5/2.5MG 3 ML NEBU. NEB ×8 (09:10→19:35)
[2017-12-14] MEDS: BUDESONIDE 0.5 MG/2 ML NEBU. NEB ×4 (09:10→19:35)
[2017-12-14 11:33] LABS: POC GLUCOSE 357 mg/dL (70-99)
[2017-12-14 16:09] LABS: POC GLUCOSE 361 mg/dL (70-99)
[2017-12-14 20:31] LABS: POC GLUCOSE 443 mg/dL (70-99)
[2017-12-14] MEDS: SIMVASTATIN 40 MG TABLET. PO ×2 (21:27)
[2017-12-14] MEDS: LORazepam 1 MG TABLET PO ×2 (21:27)
[2017-12-14] MEDS: MONTELUKAST SODIUM 10 MG TABLET. PO ×2 (21:27)
[2017-12-14] MEDS: INSULIN DETEMIR 300 UNITS/3 ML INSULN.PEN. SQ ×2 (21:39)
[2017-12-15] MEDS: BUDESONIDE 0.5 MG/2 ML NEBU. NEB ×4 (07:51→18:26)
[2017-12-15] MEDS: IPRATRPIUM/ALBUTEROL 0.5/2.5MG 3 ML NEBU. NEB ×8 (07:51→18:26)
[2017-12-15 07:57] LABS: POC GLUCOSE 295 mg/dL (70-99)
[2017-12-15] MEDS: NYSTATIN 100,000 UNIT/GM TOPICAL CREAM 15GM TUBE. TP ×4 (08:42→21:20)
[2017-12-15] MEDS: CLOPIDOGREL BISULFATE 75 MG TABLET PO ×2 (08:42)
[2017-12-15] MEDS: METHOCARBAMOL 500 MG TABLET PO ×8 (08:42→21:20)
[2017-12-15] MEDS: METOPROLOL TART IMMED RELEASE 50 MG TABLET. PO ×4 (08:43→21:21)
[2017-12-15] MEDS: PANTOPRAZOLE 40 MG TABLET.DR. PO ×2 (08:43)
[2017-12-15] MEDS: LACTOBACILLUS RHAMNOSUS GG 1 CAPSULE. PO ×4 (08:43→21:21)
[2017-12-15] MEDS: ASPIRIN ENTERIC COATED 81 MG TABLET.DR. PO ×2 (08:43)
[2017-12-15] MEDS: methylPREDNISolone SOD SUCC PF 40 MG/ML VIAL. IV ×2 (08:44)
[2017-12-15] MEDS: ENOXAPARIN 40 MG/0.4 ML SYRINGE. SQ ×2 (08:44)
[2017-12-15] MEDS: INSULIN ASPART 300 UNITS/3 ML INSULN.PEN SQ ×10 (08:51→21:26)
[2017-12-15] MEDS: NICOTINE 21MG PATCH. TD ×2 (08:52)
[2017-12-15] MEDS: BENZOCAINE/MENTHOL LOZENGE. PO ×2 (11:20)
[2017-12-15 11:28] LABS: POC GLUCOSE 382 mg/dL (70-99)
[2017-12-15 11:31] LABS: POC GLUCOSE 367 mg/dL (70-99)
[2017-12-15 16:40] LABS: POC GLUCOSE 327 mg/dL (70-99)
[2017-12-15] MEDS: LORazepam 1 MG TABLET PO ×2 (21:21)
[2017-12-15] MEDS: MONTELUKAST SODIUM 10 MG TABLET. PO ×2 (21:21)
[2017-12-15] MEDS: SIMVASTATIN 40 MG TABLET. PO ×2 (21:21)
[2017-12-15] MEDS: INSULIN DETEMIR 300 UNITS/3 ML INSULN.PEN. SQ ×2 (21:26)
[2017-12-16 02:17] LABS: HEMOGLOBIN A1C 8.3 % (4.8-5.6)
[2017-12-16] MEDS: BENZOCAINE/MENTHOL LOZENGE. PO ×2 (03:49)
[2017-12-16 04:41] LABS: ADD MAN DIFF? NO
[2017-12-16 04:42] LABS: BASO % 0 % (0-3); EOS % 0 % (0-3); HEMATOCRIT 44.8 % (39.0-53.0); LYMPH % 15 % (24-48); MEAN CORPUSCULAR HEMOGLOBIN 29 pg (25-35); MEAN CORPUSCULAR HGB CONC 34 g/dL (31-37); MEAN CORPUSCULAR VOLUME 87 fL (79-100); MONO # 0.9 x10^3/uL (0.0-1.1); MONO % 7 % (0-9); NEUT # 9.9 x10^3uL (1.8-7.7); NEUT % 77 % (31-73); PLATELET COUNT 151 x10^3/uL (140-400); RED BLOOD COUNT 5.12 x10^6/uL (4.30-5.70); RED CELL DISTRIBUTION WIDTH 13.6 % (11.5-14.5); WHITE BLOOD COUNT 12.8 x10^3/uL (4.0-11.0)
[2017-12-16 05:13] LABS: ANION GAP 9 (6-14); BLOOD UREA NITROGEN 28 mg/dL (8-26); CALCIUM 9.7 mg/dL (8.5-10.1); CARBON DIOXIDE 31 mmol/L (21-32); CHLORIDE 99 mmol/L (98-107); CREATININE 1.1 mg/dL (0.7-1.3); GFR 67.4; GLUCOSE 178 mg/dL (70-99); POTASSIUM 3.7 mmol/L (3.5-5.1); SODIUM 139 mmol/L (136-145)
[2017-12-16] MEDS: LORazepam 1 MG TABLET PO ×2 (05:52)
[2017-12-16] MEDS: IPRATRPIUM/ALBUTEROL 0.5/2.5MG 3 ML NEBU. NEB ×6 (06:04→15:22)
[2017-12-16] MEDS: BUDESONIDE 0.5 MG/2 ML NEBU. NEB ×2 (06:04)
[2017-12-16] MEDS: PANTOPRAZOLE 40 MG TABLET.DR. PO ×2 (07:58)
[2017-12-16] MEDS: INSULIN ASPART 300 UNITS/3 ML INSULN.PEN SQ ×6 (08:05→17:03)
[2017-12-16 08:10] LABS: POC GLUCOSE 182 mg/dL (70-99)
[2017-12-16 08:17] LABS: POC GLUCOSE 343 mg/dL (70-99)
[2017-12-16] MEDS: NICOTINE 21MG PATCH. TD ×2 (09:00)
[2017-12-16] MEDS: NYSTATIN 100,000 UNIT/GM TOPICAL CREAM 15GM TUBE. TP ×2 (09:01)
[2017-12-16] MEDS: ENOXAPARIN 40 MG/0.4 ML SYRINGE. SQ ×2 (09:02)
[2017-12-16] MEDS: CLOPIDOGREL BISULFATE 75 MG TABLET PO ×2 (09:03)
[2017-12-16] MEDS: METHOCARBAMOL 500 MG TABLET PO ×6 (09:03→16:58)
[2017-12-16] MEDS: LACTOBACILLUS RHAMNOSUS GG 1 CAPSULE. PO ×2 (09:03)
[2017-12-16] MEDS: ASPIRIN ENTERIC COATED 81 MG TABLET.DR. PO ×2 (09:03)
[2017-12-16] MEDS: predniSONE 10 MG TABLET PO ×2 (09:03)
[2017-12-16] MEDS: METOPROLOL TART IMMED RELEASE 50 MG TABLET. PO ×2 (09:04)
[2017-12-16 11:30] LABS: POC GLUCOSE 222 mg/dL (70-99)
[2017-12-16] MEDS ORDERED: INFLUENZA VAX SCREEN BY RX. MC ×2 (14:45)
[2017-12-16 17:01] LABS: POC GLUCOSE 324 mg/dL (70-99)
[2017-12-16] MEDS: FLU VACC QS2017-18 (36MOS+)/PF 0.5 ML SYRINGE. VAX IM ×2 (18:08)
== END 2017-12-16 19:15 | disposition home or self-care (01) | DRG 178 ==
LOC: ER 03:50 → 5 NORTH 05:17
PROVIDERS: Internal Medicine
DX: J15.6 Pneumonia due to other Gram-negative bacteria (principal); J44.0 Chronic obstructive pulmonary disease with (acute) lower respiratory infection; E11.40 Type 2 diabetes mellitus with diabetic neuropathy, unspecified; R65.10 Systemic inflammatory response syndrome (SIRS) of non-infectious origin without acute organ dysfunction; E11.65 Type 2 diabetes mellitus with hyperglycemia; B35.1 Tinea unguium; F17.200 Nicotine dependence, unspecified, uncomplicated; J44.1 Chronic obstructive pulmonary disease with (acute) exacerbation; G47.33 Obstructive sleep apnea (adult) (pediatric); I10 Essential (primary) hypertension; I25.10 Atherosclerotic heart disease of native coronary artery without angina pectoris; L60.0 Ingrowing nail; L60.1 Onycholysis; T38.0X5A Adverse effect of glucocorticoids and synthetic analogues, initial encounter; F41.9 Anxiety disorder, unspecified; Z82.49 Family history of ischemic heart disease and other diseases of the circulatory system; Z83.3 Family history of diabetes mellitus; Z95.1 Presence of aortocoronary bypass graft
CPT/HCPCS: 36415; 71045; 80048; 80053; 82962; 83036; 83605; 83880; 84484; 85007; 85025; 85610; 85730; 87040; 87070; 87205; 87804; 87804-59; 90686; 93005; 94618; 94640; 94760; 96374; 96375; 97161-GP; 97165-GO; 99285; 99285-25; J0456; J0690; J1650; J1815; J1956; J2920; J2930; J7512; J7613; J7620; J7626

== ENCOUNTER 2019-03-06 00:04 | Emergency (ER) | payer MEDICARE, OTHER ==
[~2019-03-06] VITALS: Ht 172.7 cm; Wt 99.8 kg
[~2019-03-06 00:04] MED LIST: ASPI-482 PO; BUDE10.2 IH; CLOP75TA PO; CODE1CAP24 PO; IPRA4AER IH; LEVO750T31 PO; LORA-434 PO; METH500T7 PO; METO-247 PO; METO50TA6 PO; MONT10TA9 PO; NAPR500T8 PO; PANT40TA5 PO; PRED-220 PO; SIMV80TA17 PO
[2019-03-06 00:10] VITALS: BP 190/108
--- NOTE | 2019-03-06 03:10 | PHYS DOC ---
Past Medical History Past Medical History: Asthma, Bronchitis, COPD, Diabetes-Type II, Hypertension Past Surgical History: Cholecystectomy, Other Additional Past Surgical Histo: cabg Alcohol Use: None Drug Use: None Adult General Chief Complaint Chief Complaint: LOWER EXT PAIN HPI HPI Patient is a 63 year old M who presents with back and leg pain. Has buttock pain sharp worse with movement This has been going on for the last 3-4 days. He has some radiation of the pain to his ankle. He has had a similar episode in the past. He denies any bowel or bladder changes. No abdominal pain no chest pain Review of Systems Review of Systems Constitutional: Denies fever or chills [] Eyes: Denies change in visual acuity, redness, or eye pain [] HENT: Denies nasal congestion or sore throat [] Respiratory: Denies cough or shortness of breath [] Cardiovascular: No additional information not addressed in HPI [] Musculoskeletal: Reports back pain or joint pain []has had 3 years of shoulder pain as well All other systems were reviewed and found to be within normal limits, except as documented in this note. Current Medications Current Medications Current Medications Medications (Trade) Dose Ordered Sig/Chris Start Time Stop Time Status Last Admin Dose Admin Ketorolac Tromethamine (Toradol Im) 30 mg 1X ONCE 03/06/19 03:15 03/06/19 03:16 DC 03/06/19 03:37 30 MG Allergies Allergies Allergies Coded Allergies Type Severity Reaction Last Updated Verified doxycycline Allergy Intermediate 11/16/16 Yes Physical Exam Physical Exam Constitutional: Well developed, well nourished, no acute distress, non-toxic appearance. [] HENT: Normocephalic, atraumatic, bilateral external ears normal, oropharynx moist, no oral exudates, nose normal. [] Eyes: PERRLA, EOMI, conjunctiva normal, no discharge. [] Neck: Normal range of motion, no tenderness, supple, no stridor. [] Cardiovascular:Heart rate regular rhythm, 2/6 murmur Lungs & Thorax: Faint wheezing noted no respiratory distress Abdomen: Bowel sounds normal, soft, no tenderness, no masses, no pulsatile masses. [] Skin: Warm, dry, no erythema, no rash. [] Back: No focal midline tenderness, no CVA tenderness. [] Extremities: Tenderness to palpation on the right buttock, no erythema noted [] Neurologic: Alert and oriented X 3, normal motor function, normal sensory function, no focal deficits noted, 5/5 muscle strength in bilateral lower extremities[] Psychologic: Affect normal, judgement normal, mood normal. [] Current Patient Data Vital Signs Vital Signs Date Time Temp Pulse Resp B/P (MAP) Pulse Ox O2 Delivery O2 Flow Rate FiO2 03/06/19 00:10 98.6 98 20 190/108 (135) 98 Room Air 98.6 EKG EKG [] Radiology/Procedures Radiology/Procedures [] Course & Med Decision Making Course & Med Decision Making Pertinent Labs and Imaging studies reviewed. (See chart for details) []Likely sciatica patient overall well-appearing advised blood pressure follow- up within 1 week patient was given a short course of hydrocodone for his pain. He was a diabetic so I did not want to give him prednisone he knows this is a short-term medication only he was advised to follow-up with his primary care doctor next week no signs of cauda equina syndrome Dragon Disclaimer Dragon Disclaimer This electronic medical record was generated, in whole or in part, using a voice recognition dictation system. Departure Departure Impression: Primary Impression: Sciatica Disposition: HOME, SELF-CARE Condition: STABLE Referrals: KACIE COLE (PCP) Scripts Hydrocodone/Apap 5-325 (NORCO 5-325 TABLET) 1 Each Tablet 1-2 EACH PO PRN Q6HRS PRN for PAIN, #15 as needed for pain Prov: TERESA HUNTER MD 03/06/19 TERESA HUNTER MD March 06, 2019 03:10
[2019-03-06] MEDS ORDERED: KETOROLAC 60 MG/2 ML VIAL. IM ONE (03:15)
[2019-03-06] MEDS ORDERED: HYDR-3164 PO (03:27)
== END 2019-03-06 03:56 | disposition home or self-care (01) ==
LOC: ER 00:04
DX: M54.40 Lumbago with sciatica, unspecified side (principal); J44.9 Chronic obstructive pulmonary disease, unspecified; E11.9 Type 2 diabetes mellitus without complications; I10 Essential (primary) hypertension; Z90.49 Acquired absence of other specified parts of digestive tract; Z95.1 Presence of aortocoronary bypass graft; Z88.1 Allergy status to other antibiotic agents
CPT/HCPCS: 96372; 99283; J1885

== ENCOUNTER 2019-03-08 14:33 | Emergency (ER) | payer OTHER ==
[~2019-03-08] VITALS: Ht 172.7 cm; Wt 99.8 kg
[~2019-03-08 14:33] MED LIST changes: +HYDR-3164 PO
[2019-03-08 14:55] VITALS: BP 154/98
[2019-03-08] MEDS ORDERED: CYCL10TA2 PO (15:51)
[2019-03-08] MEDS ORDERED: HYDR-3164 PO (15:51)
--- NOTE | 2019-03-08 15:52 | PHYS DOC ---
Past Medical History Past Medical History: Asthma, Bronchitis, COPD, Diabetes-Type II, Hypertension, Sciatica, Other Additional Past Medical Histor: chronic back pain Past Surgical History: Cholecystectomy, Other Additional Past Surgical Histo: cabg Alcohol Use: None Drug Use: None Adult General Chief Complaint Chief Complaint: PAIN CONTROL HPI HPI Patient is 63-year-old male who presents with back pain that radiates down his right leg. Patient was seen here 2 days ago and diagnosed as sciatica. Patient was prescribed Whitharral to go home on. Patient has his bottle Whitharral with him and still has 2 pills left. Patient states that his pain has continued to be excruciating but Whitharral has helped but is having to take it every 6 hours. Patient is concerned about getting addicted to the Whitharral's. Patient rates his pain as 3 out of 10 currently but just had Whitharral 2 hours ago. Review of Systems Review of Systems Constitutional: Denies fever or chills [] Eyes: Denies change in visual acuity, redness, or eye pain [] HENT: Denies nasal congestion or sore throat [] Respiratory: Denies cough or shortness of breath [] Cardiovascular: No additional information not addressed in HPI [] GI: Denies abdominal pain, nausea, vomiting, bloody stools or diarrhea [] : Denies dysuria or hematuria [] Musculoskeletal: Reports back pain radiating down R leg denies joint pain [] Integument: Denies rash or skin lesions [] Neurologic: Denies headache, focal weakness or sensory changes [] Endocrine: Denies polyuria or polydipsia [] Complete systems were reviewed and found to be within normal limits, except as documented in this note. Allergies Allergies Allergies Coded Allergies Type Severity Reaction Last Updated Verified doxycycline Allergy Intermediate 11/16/16 Yes Physical Exam Physical Exam Constitutional: Well developed, well nourished, no acute distress, non-toxic appearance. [] HENT: Normocephalic, atraumatic, bilateral external ears normal, oropharynx moist, no oral exudates, nose normal. [] Eyes: PERRLA, EOMI, conjunctiva normal, no discharge. [] Neck: Normal range of motion, no tenderness, supple, no stridor. [] Cardiovascular:Heart rate regular rhythm, no murmur [] Lungs & Thorax: Bilateral breath sounds clear to auscultation [] Abdomen: Bowel sounds normal, soft, no tenderness, no masses, no pulsatile masses. [] Skin: Warm, dry, no erythema, no rash. [] Back: Lower back tenderness on the R side, no CVA tenderness. [] Extremities: No tenderness, no cyanosis, no clubbing, ROM intact, no edema. [] Neurologic: Alert and oriented X 3, normal motor function, normal sensory function, no focal deficits noted. [] Psychologic: Affect normal, judgement normal, mood normal. [] Current Patient Data Vital Signs Vital Signs Date Time Temp Pulse Resp B/P (MAP) Pulse Ox O2 Delivery O2 Flow Rate FiO2 03/08/19 14:55 98.0 82 16 154/98 (116) 96 Room Air 98.0 EKG EKG [] Radiology/Procedures Radiology/Procedures [] Course & Med Decision Making Course & Med Decision Making Pertinent Labs and Imaging studies reviewed. (See chart for details) Discussed signs and symptoms with patient. Also discussed the risk of addiction. Talked to patient about trying nonpharmacological interventions such as heating pad and then ibuprofen and Flexeril before jumping to the Whitharral to try to limit the amount of Whitharral's he takes. Will discharge home with 10 more Whitharral since his appointment with PCP is not till 03/14. Looked patient up on [facility] and his only prescription for the last two years was 2 days ago. Will also prescribe flexeril. Patient is agreeable to plan. Dragon Disclaimer Dragon Disclaimer This electronic medical record was generated, in whole or in part, using a voice recognition dictation system. Departure Departure Impression: Primary Impression: Sciatic leg pain Disposition: 01 HOME, SELF-CARE Condition: STABLE Referrals: LOUIS CONLEY MD (PCP) Patient Instructions: Sciatica, [id number] Additional Instructions: Please use heat intermittently. Use ibuprofen and Flexeril before you try the Whitharral's. Use the Whitharral for break through pain. Scripts Hydrocodone/Apap 5-325 (NORCO 5-325 TABLET) 1 Each Tablet 1 TAB PO TID PRN for BREAKTHROUGH PAIN, #10 TAB Prov: CARIE DOSS APRN 03/08/19 Cyclobenzaprine Hcl (CYCLOBENZAPRINE HCL) 10 Mg Tablet 1 TAB PO TID, #30 TAB Prov: CARIE DOSS APRN 03/08/19 CARIE DOSS APRN March 08, 2019 15:52
[2019-03-08] MEDS ORDERED: KETOROLAC 30 MG/ML VIAL. IM ONE (16:00)
== END 2019-03-08 16:21 | disposition home or self-care (01) ==
LOC: ER 14:33
DX: M54.41 Lumbago with sciatica, right side (principal); J44.9 Chronic obstructive pulmonary disease, unspecified; I10 Essential (primary) hypertension; E11.9 Type 2 diabetes mellitus without complications; G89.29 Other chronic pain; Z90.49 Acquired absence of other specified parts of digestive tract; Z95.1 Presence of aortocoronary bypass graft; Z88.1 Allergy status to other antibiotic agents
CPT/HCPCS: 96372; 99284; J1885

== ENCOUNTER 2019-05-19 16:35 | Emergency (ER) | payer OTHER ==
[~2019-05-19] VITALS: Ht 172.7 cm; Wt 86.2 kg
[~2019-05-19 16:35] MED LIST changes: +ALBU2.5V8 INH; +BENZ-8 PO; +CYCL10TA2 PO; +DOXY100C2 PO; +GLYB1.252 PO; +INSU100I13 SQ; +METF500T PO; +MONT10TA49 PO; -MONT10TA9 PO; +Nicotine 21MG TD; -PANT40TA5 PO; +PANT40TA77 PO
[2019-05-19 17:15] LABS: BASO % 0 % (0-3); EOS % 0 % (0-3); HEMATOCRIT 46.5 % (39.0-53.0); HEMOGLOBIN 15.8 g/dL (13.0-17.5); LYMPH # 0.5 x10^3/uL (1.0-4.8); LYMPH % 4 % (24-48); MEAN CORPUSCULAR HEMOGLOBIN 30 pg (25-35); MEAN CORPUSCULAR HGB CONC 34 g/dL (31-37); MEAN CORPUSCULAR VOLUME 87 fL (79-100); MONO # 0.2 x10^3/uL (0.0-1.1); MONO % 2 % (0-9); NEUT % 95 % (31-73); PLATELET COUNT 180 x10^3/uL (140-400); RED BLOOD COUNT 5.32 x10^6/uL (4.30-5.70); RED CELL DISTRIBUTION WIDTH 13.5 % (11.5-14.5); WHITE BLOOD COUNT 13.7 x10^3/uL (4.0-11.0)
[2019-05-19] MEDS ORDERED: IV NORMAL SALINE 1000ML BAG 1,000 ML IV ONE (17:15)
[2019-05-19 17:23] LABS: CALCIUM 9.6 mg/dL (8.5-10.1); CREATININE 1.3 mg/dL (0.7-1.3); GFR 55.4; POTASSIUM 4.6 mmol/L (3.5-5.1)
[2019-05-19 17:26] LABS: ALBUMIN 3.8 g/dL (3.4-5.0); TOTAL BILIRUBIN 1.1 mg/dL (0.2-1.0); TOTAL PROTEIN 7.8 g/dL (6.4-8.2)
[2019-05-19 17:27] LABS: PROTHROMBIN TIME PATIENT 13.7 SEC (11.7-14.0)
--- NOTE | 2019-05-19 17:39 | PHYS DOC ---
Past Medical History Past Medical History: Asthma, Bronchitis, COPD, Diabetes-Type II, Hypertension, Sciatica, Other Additional Past Medical Histor: chronic back pain Past Surgical History: Cholecystectomy, Other Additional Past Surgical Histo: cabg Alcohol Use: None Drug Use: None Adult General Chief Complaint Chief Complaint: OTHER COMPLAINTS HPI HPI Patient is a 63 year old male who presents to the emergency department with complaints of bruising to the left upper abdomen that he noticed today while taking a bath. Patient denies any injury or trauma to the area. Patient reports concern because he had a heart catheter at this facility last week did patient denies taking any blood thinners or using any aspirin recently. He denies any nausea, vomiting, diarrhea, fever, shortness of breath, chest pain, palpitations, or back pain. Patient states that the area is tender to touch. He denies any pain at rest. She reports that he is a diabetic and that he takes insulin at home but he does not ever check his blood sugars. Review of Systems Review of Systems Constitutional: Denies fever or chills [] Eyes: Denies change in visual acuity, redness, or eye pain [] HENT: Denies nasal congestion or sore throat [] Respiratory: Reports dry cough, denies shortness of breath. Cardiovascular: No additional information not addressed in HPI [] GI: Denies abdominal pain, nausea, vomiting, or diarrhea [] : Denies dysuria or hematuria [] Musculoskeletal: Denies back pain or joint pain [] Integument: Denies rash; see history of present illness Neurologic: Denies headache, focal weakness or sensory changes [] Endocrine: Denies polyuria or polydipsia see history of present illness[] All other systems were reviewed and found to be within normal limits, except as documented in this note. Current Medications Current Medications Current Medications Medications (Trade) Dose Ordered Sig/Chris Start Time Stop Time Status Last Admin Dose Admin Info (CONTRAST GIVEN -- Rx MONITORING) 1 each PRN DAILY PRN 05/19/19 17:45 05/21/19 17:44 Insulin Human Regular (HumuLIN R VIAL) 6 unit 1X ONCE 05/19/19 18:45 05/19/19 18:46 DC 05/19/19 18:57 6 UNIT Iohexol (Omnipaque 300 Mg/ml) 60 ml 1X ONCE 05/19/19 18:00 05/19/19 18:01 DC 05/19/19 17:43 60 ML Sodium Chloride 1,000 ml @ 1,000 mls/hr 1X ONCE 05/19/19 17:15 05/19/19 18:14 DC 05/19/19 17:23 1,000 MLS/HR Allergies Allergies Allergies Coded Allergies Type Severity Reaction Last Updated Verified doxycycline Allergy Intermediate 11/16/16 Yes Physical Exam Physical Exam Constitutional: Well developed, well nourished, no acute distress, non-toxic appearance. [] HENT: Normocephalic, atraumatic, bilateral external ears normal, nose normal. [] Eyes: conjunctiva normal, no discharge. [] Neck: Normal range of motion, no tenderness, supple, no stridor. [] Cardiovascular:Heart rate tachycardia, no murmur, inguinal pulses 2+ bilat, cap refill <2 seconds [] Lungs & Thorax: Bilateral breath sounds clear to auscultation [] Abdomen: Bowel sounds normal, soft, LUQ TTP, no guarding, no rebound tenderness, no masses, no pulsatile masses. [] Skin: Warm, dry, no erythema; ecchymosis noted to left upper quadrant and epigastric area of abdomen Extremities: No cyanosis, ROM intact, no edema. [] Neurologic: Alert and oriented X 3, no focal deficits noted. [] Psychologic: Affect normal, judgement normal, mood normal. [] Current Patient Data Vital Signs Vital Signs Date Time Temp Pulse Resp B/P (MAP) Pulse Ox O2 Delivery O2 Flow Rate FiO2 05/19/19 16:54 98.0 116 18 155/95 (115) 97 Room Air 98.0 Lab Values Laboratory Tests Test 05/19/19 16:57 05/19/19 17:00 Glucose (Fingerstick) 445 mg/dL (70-99) H White Blood Count 13.7 x10^3/uL (4.0-11.0) H Red Blood Count 5.32 x10^6/uL (4.30-5.70) Hemoglobin 15.8 g/dL (13.0-17.5) Hematocrit 46.5 % (39.0-53.0) Mean Corpuscular Volume 87 fL (79-100) Mean Corpuscular Hemoglobin 30 pg (25-35) Mean Corpuscular Hemoglobin Concent 34 g/dL (31-37) Red Cell Distribution Width 13.5 % (11.5-14.5) Platelet Count 180 x10^3/uL (140-400) Neutrophils (%) (Auto) 95 % (31-73) H Lymphocytes (%) (Auto) 4 % (24-48) L Monocytes (%) (Auto) 2 % (0-9) Eosinophils (%) (Auto) 0 % (0-3) Basophils (%) (Auto) 0 % (0-3) Neutrophils # (Auto) 13.0 x10^3/uL (1.8-7.7) H Lymphocytes # (Auto) 0.5 x10^3/uL (1.0-4.8) L Monocytes # (Auto) 0.2 x10^3/uL (0.0-1.1) Eosinophils # (Auto) 0.0 x10^3/uL (0.0-0.7) Basophils # (Auto) 0.0 x10^3/uL (0.0-0.2) Segmented Neutrophils % 93 % (35-66) H Lymphocytes % 5 % (24-48) L Monocytes % 2 % (0-10) Platelet Estimate Adequate (ADEQUATE) Anisocytosis Slight Prothrombin Time 13.7 SEC (11.7-14.0) Prothrombin Time INR 1.1 (0.8-1.1) PTT 27 SEC (24-38) Sodium Level 136 mmol/L (136-145) Potassium Level 4.6 mmol/L (3.5-5.1) Chloride Level 97 mmol/L (98-107) L Carbon Dioxide Level 28 mmol/L (21-32) Anion Gap 11 (6-14) Blood Urea Nitrogen 25 mg/dL (8-26) Creatinine 1.3 mg/dL (0.7-1.3) Estimated GFR (Cockcroft-Gault) 55.4 BUN/Creatinine Ratio 19 (6-20) Glucose Level 442 mg/dL (70-99) H Calcium Level 9.6 mg/dL (8.5-10.1) Total Bilirubin 1.1 mg/dL (0.2-1.0) H Aspartate Amino Transferase (AST) 41 U/L (15-37) H Alanine Aminotransferase (ALT) 58 U/L (16-63) Alkaline Phosphatase 74 U/L (46-116) Total Protein 7.8 g/dL (6.4-8.2) Albumin 3.8 g/dL (3.4-5.0) Albumin/Globulin Ratio 1.0 (1.0-1.7) Laboratory Tests 05/19/19 17:00 Laboratory Tests 05/19/19 17:00 EKG EKG 1731 sinus tachycardia rate of 110, QRS(T) contour abnormality no STEMI read by Dr. Womack[] Radiology/Procedures Radiology/Procedures [] Course & Med Decision Making Course & Med Decision Making Pertinent Labs and Imaging studies reviewed. (See chart for details) dx: post-procedural hematoma of abdominal wall, hyperglycemia CT abd/pel negative for acute findings. Physical exam not concerning for inguinal aneurysm or abdominal aortic aneurysm. WBC 13.5, pt/inr normal, ptt normal, Cl 97, anion gap 11, glucose 442, CMP otherwise unremarkable. CT abd/pel w/IV contrast no acute findings shows indeterminate lesion of the right kidney. Patient should have a 6 month follow-up ultrasound of the kidneys as an outpatient. Patient verbalized an understanding of home care, medications, follow-up, and return to ED instructions and was in agreement with the plan of care. [] Dragon Disclaimer Dragon Disclaimer This electronic medical record was generated, in whole or in part, using a voice recognition dictation system. Departure Departure Impression: Primary Impression: Postprocedural hematoma of abdominal wall Additional Impression: Hyperglycemia Disposition: 01 HOME, SELF-CARE Condition: STABLE Referrals: LOUIS CONLEY MD (PCP) Patient Instructions: Hematoma, [id number], Hyperglycemia, [id number] Additional Instructions: Continue taking home medications as prescribed. Follow up with your primary care doctor if symptoms persist, return to the ER if symptoms worsen. The CT of your abdomen/ pelvis revealed a lesion on your mid right kidney recommend a 6 month follow-up ultrasound of the kidneys as an outpatient. 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
[2019-05-19] MEDS ORDERED: CONTRAST GIVEN. MC PRN (17:45)
[2019-05-19] MEDS ORDERED: IOHEXOL 300 MG/ML 100ML VIAL. IV ONE (18:00)
[2019-05-19 18:19] VITALS: BP 155/95
[2019-05-19 18:19] LABS: % LYMPHS 5 % (24-48); % MONOS 2 % (0-10); % SEGS 93 % (35-66)
[2019-05-19 18:21] LABS: ANISOCYTOSIS SLIGHT; PLT ESTIMATE ADEQUATE (ADEQUATE)
--- NOTE | 2019-05-19 18:41 | RAD ---
CT SCAN OF THE ABDOMEN AND PELVIS WITH IV CONTRAST. History: Abdominal bruising after heart catheterization last week Comparison:None. Procedure: Contiguous axial images of the abdomen and pelvis were performed after the administration of 60 cc of Omni 300 IV contrast and without oral contrast. CT Abdomen with contrast: Findings: Liver: Unremarkable Spleen: Unremarkable Pancreas: Unremarkable Adrenal Glands: Unremarkable Kidneys: There is a 4.4 x 4.1 cm hypoattenuating lesion arising posterior medially from the mid right kidney There is no mass or lymphadenopathy. There is no free air. There is no free fluid. The appendix is normal. CT Pelvis with Contrast: Findings: The urinary bladder appears normal. There is no free fluid. There is no lymphadenopathy. Impression: Indeterminate lesion of the right kidney. Patient should have a 6 month follow-up ultrasound of the kidneys as an outpatient. No acute findings. PQRS Compliance Statement: One or more of the following individualized dose reduction techniques were utilized for this examination: 1. Automated exposure control 2. Adjustment of the mA and/or kV according to patient size 3. Use of iterative reconstruction technique Electronically signed by: Demarco Lopes III, MD (05/19/2019 6:38 PM) [facility]
[2019-05-19] MEDS ORDERED: INSULIN REGULAR 100 UNIT/ML 3ML VIAL. IV ONE (18:45)
--- NOTE | 2019-05-19 20:27 | EKG ---
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
== END 2019-05-19 19:32 | disposition home or self-care (01) ==
LOC: ER 16:35
DX: K91.870 Postprocedural hematoma of a digestive system organ or structure following a digestive system procedure (principal); J44.9 Chronic obstructive pulmonary disease, unspecified; E11.65 Type 2 diabetes mellitus with hyperglycemia; G89.29 Other chronic pain; I10 Essential (primary) hypertension; Z90.49 Acquired absence of other specified parts of digestive tract; Z88.1 Allergy status to other antibiotic agents; Y83.8 Other surgical procedures as the cause of abnormal reaction of the patient, or of later complication, without mention of misadventure at the time of the procedure
CPT/HCPCS: 36415; 74177; 80053; 82962; 85007; 85025; 85610; 85730; 93005; 96374; 99285; J1815; J7030; Q9967; 99284

== ENCOUNTER 2019-06-02 08:01 | Emergency (ER) | payer OTHER ==
[~2019-06-02] VITALS: Ht 172.7 cm; Wt 81.6 kg
[2019-06-02] MEDS ORDERED: fentaNYL PF VIAL 100 MCG/2 ML VIAL IV PRN ×2 (08:15)
[2019-06-02] MEDS ORDERED: PROPOFOL 50 ML IV PRN (08:15)
[2019-06-02] MEDS ORDERED: ETOMIDATE 20 MG/10 ML VIAL. IV ONE ×2 (08:15→09:30)
[2019-06-02] MEDS ORDERED: SUCCINYLCHOLINE 200 MG/10 ML VIAL. IV ONE (08:15)
[2019-06-02] MEDS ORDERED: IV NORMAL SALINE 1000ML BAG 1,000 ML IV ONE ×3 (08:30→09:30)
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
[2019-06-02 08:42] LABS: BASO % 0 % (0-3); EOS # 0.1 x10^3/uL (0.0-0.7); EOS % 1 % (0-3); HEMATOCRIT 49.7 % (39.0-53.0); HEMOGLOBIN 16.9 g/dL (13.0-17.5); LYMPH # 2.3 x10^3/uL (1.0-4.8); LYMPH % 19 % (24-48); MEAN CORPUSCULAR HEMOGLOBIN 29 pg (25-35); MEAN CORPUSCULAR HGB CONC 34 g/dL (31-37); MEAN CORPUSCULAR VOLUME 86 fL (79-100); MONO % 8 % (0-9); NEUT # 8.8 x10^3/uL (1.8-7.7); NEUT % 73 % (31-73); PLATELET COUNT 158 x10^3/uL (140-400); RED BLOOD COUNT 5.76 x10^6/uL (4.30-5.70); RED CELL DISTRIBUTION WIDTH 13.6 % (11.5-14.5); WHITE BLOOD COUNT 12.2 x10^3/uL (4.0-11.0)
[2019-06-02 08:52] LABS: CALCIUM 9.7 mg/dL (8.5-10.1); CREATININE 1.1 mg/dL (0.7-1.3); GFR 67.2; POTASSIUM 3.6 mmol/L (3.5-5.1)
[2019-06-02 08:57] LABS: ALBUMIN 4.1 g/dL (3.4-5.0); ALBUMIN/GLOBULIN RATIO 1.4 (1.0-1.7); TOTAL BILIRUBIN 1.4 mg/dL (0.2-1.0); TOTAL PROTEIN 7.1 g/dL (6.4-8.2)
[2019-06-02 09:00] VITALS: BP 68/45
--- NOTE | 2019-06-02 09:07 | RAD ---
CHEST AP ONLY History: Intubation Comparison: May 06, 2019 Findings: 2 AP portable supine views of the are submitted. There is now endotracheal tube, somewhat difficult to discern tip on this exam although believed to be above the melissa. There is probable enteric catheter although also poorly distinguished. There is no obvious pneumothorax, pleural fluid, lobar infiltrate. There again has been a median sternotomy. Heart size is stable. Impression: 1. There is endotracheal tube although tip difficult to confidently distinguish, believed to be above the melissa. There is also probably enteric catheter although also poorly distinguished. Electronically signed by: Charles Wild MD (06/02/2019 9:04 AM) [id number]
[2019-06-02] MEDS ORDERED: MIDAZOLAM HCL/PF 5 MG/5 ML VIAL. NS ONE (09:15)
[2019-06-02] MEDS ORDERED: PROPOFOL 100 ML IV PRN (12:00)
== END 2019-06-02 09:08 | disposition short-term general hospital (02) ==
LOC: ER 08:01
DX: T20.20XA Burn of second degree of head, face, and neck, unspecified site, initial encounter (principal); J44.9 Chronic obstructive pulmonary disease, unspecified; E11.9 Type 2 diabetes mellitus without complications; I10 Essential (primary) hypertension; G89.29 Other chronic pain; Z90.49 Acquired absence of other specified parts of digestive tract; Z95.1 Presence of aortocoronary bypass graft; X08.8XXA Exposure to other specified smoke, fire and flames, initial encounter; Y93.G3 Activity, cooking and baking; Y92.89 Other specified places as the place of occurrence of the external cause; Y99.8 Other external cause status
CPT/HCPCS: 31500; 36415; 71045; 80053; 85025; 99291; G0480; J0330; J2250; J2704; J7030; 94002; 99285-25

== ENCOUNTER 2019-10-11 12:14 | Emergency (ER) | payer OTHER ==
[~2019-10-11] VITALS: Ht 172.7 cm; Wt 89.4 kg
[~2019-10-11 12:14] MED LIST changes: -CODE1CAP24 PO; +[UNRECOGNIZED DRUG - CODE] PO
[2019-10-11 13:37] LABS: BASO % 0 % (0-3); EOS # 0.1 x10^3/uL (0.0-0.7); EOS % 2 % (0-3); HEMATOCRIT 41.7 % (39.0-53.0); HEMOGLOBIN 14.6 g/dL (13.0-17.5); LYMPH # 1.3 x10^3/uL (1.0-4.8); LYMPH % 25 % (24-48); MEAN CORPUSCULAR HEMOGLOBIN 30 pg (25-35); MEAN CORPUSCULAR HGB CONC 35 g/dL (31-37); MEAN CORPUSCULAR VOLUME 86 fL (79-100); MONO # 0.9 x10^3/uL (0.0-1.1); MONO % 17 % (0-9); NEUT # 3.1 x10^3/uL (1.8-7.7); NEUT % 57 % (31-73); PLATELET COUNT 164 x10^3/uL (140-400); RED BLOOD COUNT 4.86 x10^6/uL (4.30-5.70); RED CELL DISTRIBUTION WIDTH 13.9 % (11.5-14.5); WHITE BLOOD COUNT 5.5 x10^3/uL (4.0-11.0)
[2019-10-11 13:44] LABS: CALCIUM 9.1 mg/dL (8.5-10.1); CREATININE 1.2 mg/dL (0.7-1.3); GFR 60.6
[2019-10-11 13:45] LABS: PROTHROMBIN TIME PATIENT 12.9 SEC (11.7-14.0)
[2019-10-11 13:49] LABS: ALBUMIN/GLOBULIN RATIO 1.1 (1.0-1.7); MAGNESIUM 1.9 mg/dL (1.8-2.4); TOTAL BILIRUBIN 0.9 mg/dL (0.2-1.0); TOTAL PROTEIN 7.6 g/dL (6.4-8.2)
[2019-10-11 13:59] LABS: CREATINE KINASE 71 U/L (39-308)
--- NOTE | 2019-10-11 14:09 | EKG ---
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
--- NOTE | 2019-10-11 15:15 | RAD ---
RIBS RIGHT AND PA CHEST History: Right rib pain. Shortness of breath. Technique: PA view the chest and 4 additional views of the right ribs. Comparison: June 02, 2019 Findings: Hyperinflation. No acute soft tissue or pleural effusion. Prior sternotomy. Normal heart size. No pneumothorax. Impression: 1. No acute cardiopulmonary process. No displaced rib fractures. Electronically signed by: Anival Daly DO (10/11/2019 3:13 PM) [id number]
--- NOTE | 2019-10-11 15:30 | PHYS DOC ---
Past Medical History Past Medical History: CAD, COPD Additional Past Medical Histor: chronic back pain (BALJINDER MOSELEY PRE PRESS PROOFER) Past Surgical History: Cholecystectomy, Other Additional Past Surgical Histo: cabg (BALJINDER MOSELEY APRN) Alcohol Use: None Drug Use: None (BALJINDER MOSELEY APRN) Adult General Chief Complaint Chief Complaint: RIB PAIN [facility] HPI Patient is a 64 year old [f__sex] who presents with [] (BALJINDER MOSELEY APRN) Review of Systems Review of Systems Constitutional: Denies fever or chills [] Eyes: Denies change in visual acuity, redness, or eye pain [] HENT: Denies nasal congestion or sore throat [] Respiratory: Denies cough or shortness of breath [] Cardiovascular: No additional information not addressed in HPI [] GI: Denies abdominal pain, nausea, vomiting, bloody stools or diarrhea [] : Denies dysuria or hematuria [] Musculoskeletal: Denies back pain or joint pain [] Integument: Denies rash or skin lesions [] Neurologic: Denies headache, focal weakness or sensory changes [] Endocrine: Denies polyuria or polydipsia [] All other systems were reviewed and found to be within normal limits, except as documented in this note. (BALJINDER MOSELEY APRN) Allergies Allergies Allergies Coded Allergies Type Severity Reaction Last Updated Verified doxycycline Allergy Intermediate 11/16/16 Yes (SAGAR PAINTER MD) Physical Exam Physical Exam Constitutional: Well developed, well nourished, no acute distress, non-toxic appearance. [] HENT: Normocephalic, atraumatic, bilateral external ears normal, oropharynx moist, no oral exudates, nose normal. [] Eyes: PERRLA, EOMI, conjunctiva normal, no discharge. [] Neck: Normal range of motion, no tenderness, supple, no stridor. [] Cardiovascular:Heart rate regular rhythm, no murmur [] Lungs & Thorax: Bilateral breath sounds clear to auscultation [] Abdomen: Bowel sounds normal, soft, no tenderness, no masses, no pulsatile masses. [] Skin: Warm, dry, no erythema, no rash. [] Back: No tenderness, no CVA tenderness. [] Extremities: No tenderness, no cyanosis, no clubbing, ROM intact, no edema. [] Neurologic: Alert and oriented X 3, normal motor function, normal sensory function, no focal deficits noted. [] Psychologic: Affect normal, judgement normal, mood normal. [] (BALJINDER MOSELEY APRN) Current Patient Data Vital Signs Vital Signs Date Time Temp Pulse Resp B/P (MAP) Pulse Ox O2 Delivery O2 Flow Rate FiO2 10/11/19 15:47 92 20 146/84 (104) 100 Nasal Cannula 3.0 10/11/19 12:20 98.5 98.5 (SAGAR PAINTER MD) Lab Values Laboratory Tests Test 10/11/19 13:20 White Blood Count 5.5 x10^3/uL (4.0-11.0) Red Blood Count 4.86 x10^6/uL (4.30-5.70) Hemoglobin 14.6 g/dL (13.0-17.5) Hematocrit 41.7 % (39.0-53.0) Mean Corpuscular Volume 86 fL (79-100) Mean Corpuscular Hemoglobin 30 pg (25-35) Mean Corpuscular Hemoglobin Concent 35 g/dL (31-37) Red Cell Distribution Width 13.9 % (11.5-14.5) Platelet Count 164 x10^3/uL (140-400) Neutrophils (%) (Auto) 57 % (31-73) Lymphocytes (%) (Auto) 25 % (24-48) Monocytes (%) (Auto) 17 % (0-9) H Eosinophils (%) (Auto) 2 % (0-3) Basophils (%) (Auto) 0 % (0-3) Neutrophils # (Auto) 3.1 x10^3/uL (1.8-7.7) Lymphocytes # (Auto) 1.3 x10^3/uL (1.0-4.8) Monocytes # (Auto) 0.9 x10^3/uL (0.0-1.1) Eosinophils # (Auto) 0.1 x10^3/uL (0.0-0.7) Basophils # (Auto) 0.0 x10^3/uL (0.0-0.2) Prothrombin Time 12.9 SEC (11.7-14.0) Prothrombin Time INR 1.0 (0.8-1.1) Activated Partial Thromboplast Time 30 SEC (24-38) Sodium Level 136 mmol/L (136-145) Potassium Level 5.0 mmol/L (3.5-5.1) Chloride Level 99 mmol/L (98-107) Carbon Dioxide Level 33 mmol/L (21-32) H Anion Gap 4 (6-14) L Blood Urea Nitrogen 30 mg/dL (8-26) H Creatinine 1.2 mg/dL (0.7-1.3) Estimated GFR (Cockcroft-Gault) 60.6 BUN/Creatinine Ratio 25 (6-20) H Glucose Level 187 mg/dL (70-99) H Calcium Level 9.1 mg/dL (8.5-10.1) Magnesium Level 1.9 mg/dL (1.8-2.4) Total Bilirubin 0.9 mg/dL (0.2-1.0) Aspartate Amino Transferase (AST) 17 U/L (15-37) Alanine Aminotransferase (ALT) 27 U/L (16-63) Alkaline Phosphatase 66 U/L (46-116) Creatine Kinase 71 U/L (39-308) Creatine Kinase MB (Mass) 2.6 ng/mL (0.0-3.6) Creatine Kinase MB Relative Index % (0-4) Troponin I Quantitative < 0.017 ng/mL (0.000-0.055) SB-Yjl-[id number]-Type Natriuretic Peptide 359 pg/mL (0-124) H Total Protein 7.6 g/dL (6.4-8.2) Albumin 4.0 g/dL (3.4-5.0) Albumin/Globulin Ratio 1.1 (1.0-1.7) Laboratory Tests 10/11/19 13:20 Laboratory Tests 10/11/19 13:20 (SAGAR PAINTER MD) EKG EKG 1336-SR rate 84, no STEMI read by Dr. Painter[] (BALJINDER MOSELEY APRN) Radiology/Procedures Radiology/Procedures PROCEDURE: RIBS RIGHT AND PA CHEST RIBS RIGHT AND PA CHEST History: Right rib pain. Shortness of breath. Technique: PA view the chest and 4 additional views of the right ribs. Comparison: June 02, 2019 Findings: Hyperinflation. No acute soft tissue or pleural effusion. Prior sternotomy. Normal heart size. No pneumothorax. Impression: 1. No acute cardiopulmonary process. No displaced rib fractures. [] (BALJINDER MOSELEY APRN) Course & Med Decision Making Course & Med Decision Making Pertinent Labs and Imaging studies reviewed. (See chart for details) [] (BALJINDER MOSELEY APRN) Course & Med Decision Making ER PHYSICIAN ATTENDING NOTE: I have personally seen and examined the patient, and agree with the history, physical exam, and plan, as documented by mid-level provider. Patient exam is benign. There is no palpable subcutaneous nodule or mass on my exam. (SAGAR PAINTER MD) Dragon Disclaimer Dragon Disclaimer This electronic medical record was generated, in whole or in part, using a voice recognition dictation system. (BALJINDER MOSELEY APRN) Departure Departure Impression: Primary Impression: Rib pain on right side Additional Impressions: RUQ abdominal pain Lipoma of abdominal wall Disposition: HOME, SELF-CARE Condition: STABLE Referrals: LOUIS CONLEY MD (PCP) Patient Instructions: Abdominal Pain (Nonspecific), Lipoma-Brief Additional Instructions: Follow up with your primary care doctor in 1-2 days. Your chest x-ray and ultrasound were normal today. Return to the ER if symptoms worsen. Problem Qualifiers BALJINDER MOSELEY APRN Oct 11, 2019 15:30 SAGAR PAINTER MD Oct 11, 2019 16:23
--- NOTE | 2019-10-11 16:23 | RAD ---
Examination: ABDOMEN LTD History: Tender knot in the right upper quadrant Comparison/Correlation: None Findings: Limited right upper quadrant ultrasound exam was performed. Cholecystectomy noted. Hepatic echotexture is normal. Common bile duct is unremarkable. No biliary dilatation. Right kidney measures 11.3 cm x 6.1 cm x 5.1 cm. Right renal superior pole cyst is present measuring up to 4.4 cm. Pancreas is obscured by bowel gas. Inferior vena cava is unremarkable. In the region of the reported site of tenderness and knot, there is no suspicious finding. No mass or fluid collection. Impression: No mass or fluid collection in the region of the reported right upper quadrant site of tenderness. Cholecystectomy. Electronically signed by: Wellington Chapa MD (10/11/2019 4:20 PM) [facility]
[2019-10-11 16:47] VITALS: BP 138/78
== END 2019-10-11 17:53 | disposition home or self-care (01) ==
LOC: ER 12:14
DX: R07.81 Pleurodynia (principal); R10.11 Right upper quadrant pain; D17.5 Benign lipomatous neoplasm of intra-abdominal organs; J44.9 Chronic obstructive pulmonary disease, unspecified; I25.10 Atherosclerotic heart disease of native coronary artery without angina pectoris; Z90.49 Acquired absence of other specified parts of digestive tract; Z95.1 Presence of aortocoronary bypass graft; Z88.1 Allergy status to other antibiotic agents
CPT/HCPCS: 36415; 71101; 76705; 80053; 82553; 83735; 83880; 84484; 85025; 85610; 85730; 93005; 99285-25